=== PATIENT | male | born 1990 | race Caucasian/White ===

== ENCOUNTER → 2017-09-18 15:09 | Outpatient (CLI) | payer OTHER, SELFPAY ==
[2017-09-18 18:28] LABS: AST(SGOT) 25 U/L (15-37); Alanine Aminotransfer ALT/SGPT 27 U/L (16-61); Alkaline Phosphatase 66 U/L (45-117); Anion Gap 10 (5-15); BUN 8 mg/dL (7-18); BUN/Creat Ratio 10.2 RATIO (10-20); Bilirubin, Direct 0.14 mg/dL (0.00-0.30); Calcium,Total 9.4 mg/dL (8.5-10.1); Chloride 104 mmol/L (98-107); Cholesterol 179 mg/dL (200); Creatinine, Serum 0.79 mg/dL (0.70-1.30); EST Glomerular Filtration Rate 128 mL/min (>60); Est Glom Filt Rate - Afr Amer 155 mL/min (>60); Globulin 5.1 g/dL (2.2-4.2); Glucose 206 mg/dL (74-106); High Density Lipoprotein 22 mg/dL; Potassium 4.3 mmol/L (3.5-5.1); Protein, Total 9.1 g/dL (6.4-8.2); Sodium Level 135 mmol/L (136-145); Triglycerides 356 mg/dL; Very Low Density Lipoprotein 71 mg/dL (5-40)
[2017-09-18 19:57] LABS: Microalbumin:Creatinine Ratio 194.1 mg/g CRE (<30 mg/g CRE)
[2017-09-18 20:05] LABS: Neisserai gonorrhoeae by PCR Negative (Negative); Probe Check PASS; Sample Adequacy Control PASS; Specimen Processing Control PASS
[2017-09-19 09:54] LABS: HIV - WCH Non-Reactive (Nonreactive)
== END ==
PROVIDERS: Family Provider Family Medicine; PCP Family Medicine; Visit Provider Family Medicine
DX: E11.9 Type 2 diabetes mellitus without complications (principal); Z20.2 Contact with and (suspected) exposure to infections with a predominantly sexual mode of transmission; N52.9 Male erectile dysfunction, unspecified
CPT/HCPCS: 36415; 80048; 80061; 80076; 82043; 82570; 84403; 86703; 87591

== ENCOUNTER → 2017-12-29 10:40 | Outpatient (CLI) | payer OTHER, SELFPAY ==
[2017-12-29 12:31] LABS: Microalbumin,Random Urine 8.5 mg/L (NO RANGE EST.); Microalbumin:Creatinine Ratio 7.6 mg/g CRE (<30 mg/g CRE)
[2017-12-29 12:32] LABS: AST(SGOT) 14 U/L (15-37); Alanine Aminotransfer ALT/SGPT 16 U/L (16-61); Albumin, Serum 3.8 g/dL (3.2-5.0); Alkaline Phosphatase 43 U/L (45-117); Anion Gap 9 (5-15); BUN 11 mg/dL (7-18); BUN/Creat Ratio 15.6 RATIO (10-20); Bilirubin, Direct 0.18 mg/dL (0.00-0.30); Calcium,Total 9.3 mg/dL (8.5-10.1); Chloride 106 mmol/L (98-107); Cholesterol 90 mg/dL (200); EST Glomerular Filtration Rate 145 mL/min (>60); Est Glom Filt Rate - Afr Amer 175 mL/min (>60); Glucose 107 mg/dL (74-106); High Density Lipoprotein 21 mg/dL; Potassium 4.2 mmol/L (3.5-5.1); Protein, Total 7.8 g/dL (6.4-8.2); Sodium Level 138 mmol/L (136-145); Triglycerides 258 mg/dL; Very Low Density Lipoprotein 52 mg/dL (5-40)
== END ==
PROVIDERS: Family Provider Family Medicine; PCP Family Medicine; Visit Provider Family Medicine
DX: E11.9 Type 2 diabetes mellitus without complications (principal); E34.9 Endocrine disorder, unspecified; Z79.4 Long term (current) use of insulin
CPT/HCPCS: 36415; 80048; 80061; 80076; 82043; 82570; 84403

== ENCOUNTER 2018-02-26 05:56 | Day surgery (SDC) | payer OTHER, SELFPAY ==
[2018-02-26 06:18] VITALS: BP 128/92; PULSE 76; RESP 16; TEMP 37.6; O2SAT 99; BMI 28.7
[2018-02-26 06:30] LABS: Bedside Glucose 82 mg/dL (70-110)
--- NOTE | 2018-02-26 07:30 | SEP_PTH ---
PATIENT: JOSE ANGEL WATSON [place] [facility] [place][id number] AGE/SX: 27/M ROOM: RE02/26/[address]: Vish Zuleta MD : [id number] BED: DIS: 02/26/2018 SPEC #: [id number] RECD: 02/26/18 10:39 STATUS: BENJI REAnnie #: [id number] RAFI: 02/26/18 07:[address]: Vish Zuleta DEPT: SURGICAL PATHOLOGY RECD BY: Joshua De Santiago ENTERED: 02/26/18 11:33 SP TYPE: SEPTUM OTHR DR: Dr. Isra Hernandez MD Tissues: Nasal septum, NOS Procedures: Decalcification bone/plaque Surgery Specimen Level III HEADER OPERATION: Septoplasty, turbinate cautery PRE-OP DIAGNOSIS: Nasal congestion, deviated nasal septum, hypertrophy of nasal turbinates TISSUE SUBMITTED: Septum and cartilage MICROSCOPIC DIAGNOSIS Septum and cartilage: Fragments of cartilage and bone, clinically deviated nasal septum. SJ:delia 03/04/18 MICROSCOPIC DESCRIPTION Slides are reviewed. GROSS DESCRIPTION Received in fixative is one container labeled with the patient's name and designated nasal septum and cartilage. The specimen consists of multiple pieces of bone and cartilage that in aggregate measure 2.5 x 1.5 x 0.3 cm. The entire specimen is submitted in one cassette after decalcification. / SAROJ:delia 02/26/18 TC: 5 CPT: 57844, 15881
[2018-02-26] MEDS: Oxymetazoline 0.05% 1 SPRAY SPRAY.BTL 15 SPRAY (07:45)
[2018-02-26] MEDS: Neomycin/Bacitracin/Polymyxin Ointment 1 APPLIC (08:00)
[2018-02-26] MEDS: Mixture 30 ML Bottle TOPICAL (08:00)
[2018-02-26 08:39] LABS: Hemoglobin A1c 5.6 % (4.2-6.3)
--- NOTE | 2018-02-26 08:49 | PCM.DC ---
You will use the following diet at home:: No restrictions Discharge Activity: Return to Normal Activity - Head of bed elevation. Do not blow nose but may rinse with saline and sniff and clear multiple times per day. Also may use Afrin nasal spray to reduce any congestion or oozing, should that occur. Take antibiotic as prescribed. Allergies/Adverse Reactions: Allergies No Known Allergies Allergy (Verified 02/19/18 13:15) Medications to take at Discharge Atorvastatin Calcium [Lipitor] 10 mg PO QHS 02/19/18 Glimepiride [Amaryl] 2 mg PO DAILY 02/19/18 Lisinopril [Zestril] 5 mg PO DAILY 02/19/18 Metformin HCl [Glucophage] 1,000 mg PO BIDCM 02/19/18 Sitagliptin Phosphate [Januvia] 50 mg PO DAILY 02/19/18 Test Results: Test results from this visit will be discussed in further detail at your follow-up appointment, if applicable. Please Follow Up With: Vish Zuleta MD - call for appointment to remove splints 03-10-18
--- NOTE | 2018-02-26 08:53 | DCINST_ITS ---
You will use the following diet at home:: No restrictions Discharge Activity: Return to Normal Activity - Head of bed elevation. Do not b low nose but may rinse with saline and sniff and clear multiple times per day. Also may use Afrin nasal spray to reduce any congestion or oozing, should that occur. Take antibiotic as prescribed. Allergies/Adverse Reactions: Allergies No Known Allergies Allergy (Verified 02/19/18 13:15) Medications to take at Discharge Atorvastatin Calcium [Lipitor] 10 mg PO QHS 02/19/18 Glimepiride [Amaryl] 2 mg PO DAILY 02/19/18 Lisinopril [Zestril] 5 mg PO DAILY 02/19/18 Metformin HCl [Glucophage] 1,000 mg PO BIDCM 02/19/18 Sitagliptin Phosphate [Januvia] 50 mg PO DAILY 02/19/18 Test Results: Test results from this visit will be discussed in further detail at your follow- up appointment, if applicable. Please Follow Up With: Vish Zuleta MD - call for appointment to remove splints 03-10-18
[2018-02-26 09:00] VITALS: BP 128/92; BP 135/93; BP 140/94; PULSE 106; PULSE 90; RESP 15; RESP 16; TEMP 36.7; O2SAT 100; O2SAT 98
[2018-02-26 09:14] VITALS: BP 128/92
[2018-02-26 09:15] VITALS: BP 128/92; BP 134/96; PULSE 85; RESP 16; TEMP 36.6; O2SAT 98
[2018-02-26 09:16] LABS: Bedside Glucose 64 mg/dL (70-110)
[2018-02-26] MEDS: HYDROcodone Bitartrate/Apap 5/325 Tablet PO (09:40)
[2018-02-26 10:25] VITALS: BP 128/92; BP 135/91; PULSE 75; RESP 16; TEMP 36.9; O2SAT 100
--- NOTE | 2018-02-26 10:55 | PCM.OP.BLANK ---
Operative Report Date of Procedure: 02/26/18 Preoperative diagnosis: Nasal obstruction secondary to septal deformity and turbinate hypertrophy Postoperative diagnosis: Same Procedure: Nasal septoplasty, therapeutic outfracture and subsequent submucosal cautery of inferior turbinates Anesthesia: General per Jack Rosales Details of procedure: The patient was transported to the operating room and placed on the OR table in the supine position. After the administration of adequate general anesthesia using an LMA the patient was appropriately positioned, eyes were treated and taped closed. Nasal exam revealed severe septal deviation to the right side with virtually 100% obstruction of the right nasal chamber. A large concave surface was noted on the left side. Turbinates were hypertrophic easily recognized on the left side but not quite as apparent until the septum was later replaced to the midline position. Over 10 years ago this young fellow underwent adenoidectomy and removal of a large posterior nasal septal spur. At that time intervention on the septum was not undertaken as he was still growing and the septum at that time did not seem as badly displaced to the right side. Over a decade, and possibly with some nasal trauma, the septum developed in a fashion to tilt severely to the right side closing the right nasal chamber at the vestibule and nasal valve region. Cottonoid pledgets soaked in Lenny-Synephrine Xylocaine mixture were placed into the nasal chamber to bring about vasoconstriction. 1% Xylocaine with epinephrine 1-100,000 was used to infiltrate the septum and the submucosal plane in the left side of the septum as well as inferiorly along the right maxillary crest region. Later in the procedure the inferior turbinates were also injected with small quantity of this local anesthetic. After allowing adequate time for the vasoconstrictive effects to take place a right hemitransfixion incision was created with #15 scalpel and the soft tissues were elevated in the subperichondrial plane along the left side of the septum. An inferior tunnel was created on the right side as well along the maxillary crest and the most inferior aspect of the quadrangular cartilage. At the chondro-osseous junction of the septum [place] elevator was used to make a cut so that a posterior tunnel could be elevated on the right side as well. The remaining portion of perpendicular plate of ethmoid was removed after double-action scissors were used to make superior and inferior cuts. Quadrangular cartilage was freed from the maxillary crest anteriorly and the inferior aspect was slightly shaved to allow it to have better positioning and articulation with the maxillary crest. This was positioned without buckling afterward. The improvement in the nasal airway was substantial. During the dissection a small tear occurred in the right septal flap. This was thought to be advantageous as it is important to have some opening for egress of any retained serosanguineous fluid between the mucoperichondrial flaps. No tear or defect occurred on the left side of the mucoperichondrial flap. Septum was repositioned in the midline and as described above, and sat vertically without any buckling. The hemitransfixion incision was closed with interrupted suture of 4-0 chromic. The inferior turbinates were then laterally outfractured and treated with the [place] bipolar probe. The probe was placed into the anterior aspect of the turbinate, current was applied and when appropriate blanching was evident the probe was advanced the length of the turbinate accomplishing submucosal or intramural cautery. The posterior tips received additional cautery with benefit of the 0 degree endoscope for guidance. The airway appeared to be greatly improved and the septum was supported with placement of Pfeiffer airway splints first coated in antibiotic ointment introduced into the nasal chamber and secured anteriorly with a single suture of 3-0 Ethilon. A nasal drip pad was applied and the procedure was terminated. The patient tolerated the procedure well, did not sustain any intraoperative anesthetic or surgical complication, was taken to the recovery where he was noted to be in satisfactory condition. Vish Zuleta MD
--- NOTE | 2018-02-26 11:09 | OP.PCM_ITS ---
Operative Report Date of Procedure: 02/26/18 Preoperative diagnosis: Nasal obstruction secondary to septal deformity and turbinate hypertrophy Postoperative diagnosis: Same Procedure: Nasal septoplasty, therapeutic outfracture and subsequent submucosal cautery of inferior turbinates Anesthesia: General per Jack Rosales Details of procedure: The patient was transported to the operating room and placed on the OR table in the supine position. After the administration of adequate general anesthesia using an LMA the patient was appropriately positioned, eyes were treated and taped closed. Nasal exam revealed severe septal deviation to the right side with virtually 100% obstruction of the right nasal chamber. A large concave surface was noted on the left side. Turbinates were hypertrophic easily recognized on the left side but not quite as apparent until the septum was later replaced to the midline position. Over 10 years ago this young fellow underwent adenoidectomy and removal of a large posterior nasal septal spur. At that time intervention on the septum was not undertaken as he was still growing and the septum at that time did not seem as badly displaced to the right side. Over a decade, and possibly with some nasal trauma, the septum developed in a fashion to tilt severely to the right side closing the right nasal chamber at the vestibule and nasal valve region. Cottonoid pledgets soaked in Lenny-Synephrine Xylocaine mixture were placed into the nasal chamber to bring about vasoconstriction. 1% Xylocaine with epinephrine 1-100,000 was used to infiltrate the septum and the submucosal plane in the left side of the septum as well as inferiorly along the right maxillary crest region. Later in the procedure the inferior turbinates were also injected with small quantity of this local anesthetic. After allowing adequate time for the vasoconstrictive effects to take place a right hemitransfixion incision was created with #15 scalpel and the soft tissues were elevated in the subperichondrial plane along the left side of the septum. An inferior tunnel was created on the right side as well along the maxillary crest and the most inferior aspect of the quadrangular cartilage. At the chondro-osseous junction of the septum [place] elevator was used to make a cut so that a posterior tunnel could be elevated on the right side as well. The remaining portion of perpendicular plate of ethmoid was removed after double- action scissors were used to make superior and inferior cuts. Quadrangular ca rtilage was freed from the maxillary crest anteriorly and the inferior aspect was slightly shaved to allow it to have better positioning and articulation with the maxillary crest. This was positioned without buckling afterward. The improvement in the nasal airway was substantial. During the dissection a small tear occurred in the right septal flap. This was thought to be advantageous as it is important to have some opening for egress of any retained serosanguineous fluid between the mucoperichondrial flaps. No tear or defect occurred on the left side of the mucoperichondrial flap. Septum was repositioned in the midline and as described above, and sat vertically without any buckling. The hemitransfixion incision was closed with interrupted suture of 4-0 chromic. The inferior turbinates were then laterally outfractured and treated with the [place] bipolar probe. The probe was placed into the anterior aspect of the turbinate, current was applied and when appropriate blanching was evident the probe was advanced the length of the turbinate accomplishing submucosal or intramural cautery. The posterior tips received additional cautery with benefit of the 0 degree endoscope for guidance. The airway appeared to be greatly improved and the septum was supported with placement of Pfeiffer airway splints first coated in antibiotic ointment introduced into the nasal chamber and secured anteriorly with a single suture of 3-0 Ethilon. A nasal drip pad was applied and the procedure was terminated. The patient tolerated the procedure well, did not sustain any intraoperative anesthetic or surgical complication, was taken to the recovery where he was noted to be in satisfactory condition. Vish Zuleta MD
== END 2018-02-26 10:25 | disposition home or self-care (01) ==
LOC: SDC 05:57 → AC 05:59
PROVIDERS: Family Provider Family Medicine; PCP Family Medicine; Referring Provider Otolaryngology Otolaryngology/Facial Plastic Surgery; Visit Provider Otolaryngology Otolaryngology/Facial Plastic Surgery
PROC: (CPT 30520; principal; 2018-02-26 07:15)
DX: J34.2 Deviated nasal septum (principal); J34.3 Hypertrophy of nasal turbinates; E78.00 Pure hypercholesterolemia, unspecified; F41.9 Anxiety disorder, unspecified; F32.9 Major depressive disorder, single episode, unspecified; Z79.84 Long term (current) use of oral hypoglycemic drugs; Z79.899 Other long term (current) drug therapy; E11.65 Type 2 diabetes mellitus with hyperglycemia
CPT/HCPCS: 00160; 30520; 30802; 82962; 83036; 88304; 88311; J7120; J2405

== ENCOUNTER 2018-03-19 23:54 | Emergency (ER) | payer OTHER, SELFPAY ==
[2018-03-19 23:56] VITALS: BP 128/91; PULSE 159; RESP 20; TEMP 36.4; O2SAT 99; BMI 27.5
[2018-03-20] MEDS: Adenosine 6 MG/2 ML Syringe IV (00:04)
--- NOTE | 2018-03-20 00:06 | ED.RN ---
CALLED FOR EKG PER RN REQUEST, PULLED OLD EKGS FOR
[2018-03-20 00:10] LABS: Bedside Glucose 108 mg/dL (70-110)
--- NOTE | 2018-03-20 00:35 | EKG12_ITS ---
Test Reason : REPEAT Blood Pressure : / mmHG Vent. Rate : 081 BPM Atrial Rate : 081 BPM P-R Int : 170 ms QRS Dur : 108 ms QT Int : 404 ms P-R-T Axes : 054 017 041 degrees QTc Int : 469 ms Normal sinus rhythm Low voltage QRS Incomplete right bundle branch block Borderline ECG Confirmed by KARINE CANADA, ELENA ([id number]), video editor HELEN HENRIQUEZ ([id number]) on 03/25/2018 11:24:49 AM Referred By: DRAKE Confirmed By:ELENA MILTON MD
[2018-03-20 00:36] LABS: Absolute Lymphocyte Count 6.57 X10^3/ul (0.83-4.51); Absolute Neutrophil Count 3.8 X10^3/uL (2.0-7.7); Basophil# 0.08 X10^3/uL; Basophil% 0.7 % (0-1); Eosinophil# 0.58 X10^3/uL; Eosinophils% 4.9 % (0-5); Hematocrit 42.7 % (40-54); Hemoglobin 15.5 g/dl (13.0-16.5); Lymphocyte # 6.57 X10^3/ul (4.0); Lymphocyte % 55.3 % (19-41); Mean Corp Hgb Conc 36.3 g/gl (32-36); Mean Corpuscular Volume 82.6 fL (80-94); Mean Platelet Vol. 10.5 fl (6.2-12.0); Monocyte# 0.85 X10^3/uL; Monocyte% 7.1 % (0-10); Neutrophil # 3.79 X10^3/uL (2.7-7.7); Neutrophil % 31.8 % (47-70); Platelet Count 297 K/mm3 (150-450); RBC Distribution Width CV 12.3 % (11.6-14.6); RBC Distribution Width SD 36.8 fl (35.1-43.9); Red Blood Count 5.17 M/mm3 (4.6-6.2); White Blood Count 11.9 K/mm3 (4.4-11.0)
[2018-03-20 00:37] LABS: Differential Indicated SCAN CRITERIA MET; POSITIVE COUNT NO; POSITIVE DIFFERENTIAL YES; POSITIVE MORPHOLOGY NO
[2018-03-20 00:40] LABS: ALB/GLOB Ratio 0.9 RATIO (0.9-2.4); AST(SGOT) 24 U/L (15-37); Alanine Aminotransfer ALT/SGPT 22 U/L (16-61); Albumin, Serum 4.4 g/dL (3.2-5.0); Alkaline Phosphatase 50 U/L (45-117); Anion Gap 11 (5-15); BUN 18 mg/dL (7-18); BUN/Creat Ratio 14.8 RATIO (10-20); Calcium,Total 9.4 mg/dL (8.5-10.1); Chloride 103 mmol/L (98-107); Creatinine, Serum 1.22 mg/dL (0.70-1.30); EST Glomerular Filtration Rate 77 mL/min (>60); Est Glom Filt Rate - Afr Amer 93 mL/min (>60); Globulin 4.7 g/dL (2.2-4.2); Glucose 147 mg/dL (74-106); Potassium 3.5 mmol/L (3.5-5.1); Protein, Total 9.1 g/dL (6.4-8.2); Sodium Level 137 mmol/L (136-145)
--- NOTE | 2018-03-20 00:40 | ED.DCSUM_ITS ---
- ER Visit Summary Date of Service: 03/20/18 Chief Complaint: Palpitations History of Present Illness: The patient is a 27 M who presents with some chest discomfort and palpitations that started quite suddenly about an hour and 1/2-2 hours prior to arrival. He feels generalized weakness with this. He has no difficulty breathing, he has no abdominal pain no nausea or vomiting. He has some lightheadedness but no other symptoms. Physical Examination: Patient appears in some distress, he is not diaphoretic Moist mucous membranes, no obvious facial deformity No C-spine tenderness supple neck. Regular tachycardia without any obvious murmurs Clear lungs bilaterally speaking in full sentences without any obvious respiratory distress Abdomen soft and nontender no guarding or rebound Moves all extremities without any difficulty or pain. Skin does not show any obvious rashes or lesions, no trauma. Alert oriented ?3 with no gross focal deficiT Emergency Department Course and Treatment: The monitor and the initial EKG showed supraventricular tachycardia. Vagal maneuvers failed. 6 mg of adenosine IV were pushed and patient had spontaneous conversion to normal sinus rhythm. Because of history of hypertension diabetes, for his safety, I checked blood work, he does not have an anion gap, he has a normal blood sugar and otherwise normal workup. Disposition: Discharge stable condition Impression: Supraventricular tachycardia This note was generated with [employer] dictation software. It may contain incorrect words, spelling, and punctuation that were not noted in review of the chart p rior to signing ED Disposition - Plan for ED Patient: Disposition: Home or Assisted Living Chief Complaint: Chest Pain Instructions: ED Tachycardia Pat PSVT Referrals: Pacheco Guillermo MD [STAFF PHYSICIAN] - 3-5 Days
[2018-03-20 00:58] VITALS: BP 128/95; PULSE 79; RESP 17; O2SAT 98
[2018-03-20 01:31] VITALS: BP 122/88; PULSE 83; RESP 20; O2SAT 90; O2SAT 99
== END 2018-03-20 01:32 | disposition home or self-care (01) ==
PROVIDERS: Emergency Provider Emergency Medicine; Family Provider Family Medicine; PCP Family Medicine
DX: I47.1 Supraventricular tachycardia (principal); I10 Essential (primary) hypertension; E11.9 Type 2 diabetes mellitus without complications; Z79.84 Long term (current) use of oral hypoglycemic drugs; Z79.899 Other long term (current) drug therapy
CPT/HCPCS: 80053; 82962; 85025; 93005; 96374; 99283; J7030; A4216; J0153

== ENCOUNTER → 2018-04-01 11:43 | Outpatient (CLI) | payer OTHER, SELFPAY ==
[2018-03-19 23:56] VITALS: BMI 27.5
--- OUTSIDE RECORDS SUMMARY | 2018-05-27 20:43 | XMS RPT_ITS ---
:1990 Author Organization OHIP Support Name Relationship Address Phone WILDGINGER Unavailable [address] + [place] [address] KATJA WATSONI Unavailable [address] + [place] [address] CATRINA WATSON Unavailable [address] + [place] [address] WILDGINGER Unavailable [address] + [place] [address] LARA WATSON Unavailable [address] + [place] [address] [facility] CATRINA Unavailable [address] + [place] [address] WILDGINGER Unavailable [address] + [place] [address] LARA WATSON Unavailable [address] + [place] [address] WILDGINGER Unavailable [address] + [place] [address] LARA WATSON Unavailable [address] + [place] [address] WILDGINGER Unavailable [address] + [place] [address] LARA WATSON Unavailable [address] + [place] [address] WILDGINGER Unavailable [address] + [place] [address] LARA WATSON Unavailable [address] + [place] [address] WILDGINGER Unavailable [address] + [facility] [place] [address] KATJA WATSONI Unavailable [address] + [place] [address] UE Unavailable Unavailable Unavailable KATJA WATSONI Unavailable [address] + [place] [address] UE Unavailable Unavailable Unavailable KATJA WATSONI Unavailable [address] + [place] [address] Care Team Providers Name Role Phone Isra Hernandez Attending Unavailable Mary, Isra Primary Care Unavailable Mary, Isra Attending Unavailable Mary, Isra Primary Care Unavailable Vish Zuleta Attending Unavailable Vish Zuleta Referring Unavailable Mary, Isra Primary Care Unavailable Hernandez, Isra Primary Care Unavailable Isra Pierson Attending Unavailable Georgia Alvarez Attending Unavailable Hernandez, Isra Attending Unavailable Mary, Isra Primary Care Unavailable Eagle, Salem Attending Unavailable Mary, Isra Referring Unavailable Eagle, Pacheco Attending Unavailable Eagle, Pacheco Referring Unavailable Mary, Isra Primary Care Unavailable Eagle, [place] Attending Unavailable Eagle, Pacheco Referring Unavailable Hernandez, sIra Primary Care Unavailable Eagle, [place] Consulting Unavailable PROBLEMS PROBLEMS DATE TYPE CONDITION / CODE ATTENDING STATUS SOURCE Unknown I47.1 - Supraventricular Eagle, Pacheco Active [place] [facility] tachycardia / Community I47.1(ICD-10) Hospital Repository Unknown I10 - Essential (primary) Eagle, Pacheco Active [place] [facility] hypertension / Community I10(ICD-10) Hospital Repository Unknown E78.00 - Pure Eagle, Salem Active [place] [facility] hypercholesterolemia, Community unspecified / Hospital E78.00(ICD-10) Repository Unknown E78.0 - Pure Eagle, Pacheco Active [place] [facility] hypercholesterolemia / Community E78.0(ICD-10) Hospital Repository Unknown E11.9 - Type 2 diabetes Isra Hernandez Active [place] [facility] mellitus without Community complications / Hospital E11.9(ICD-10) Repository Unknown E34.9 - Endocrine Isra Hernandez Active [place] [facility] disorder, unspecified / Community E34.9(ICD-10) Hospital Repository Unknown Z20.2 - Contact with and Isra Hernandez Active [place] 8 (suspected) exposure to Community infections with a Hospital predominantly sexual mode Repository of transmission / Z20.2(ICD-10) Unknown N52.9 - Male erectile Isra Hernandez Active [place] [facility] dysfunction, unspecified Community / N52.9(ICD-10) Hospital Repository PROCEDURES PROCEDURES No Procedure Records FoundRESULTS RESULTS ECHOCARDIOGRAM COMPLETE Observed: 04/06/2018 Status: F Source: [place] 7:44 AM [facility] RE[facility] Cardiovascular Services [address] [place] [address] Echo Complete 04/02/18 1456 MR#: [id number] Acct: [id number] Name: LACI WATSON Rep #: [id number] : 1990 From: Pacheco Guillermo MD Attending Dr: Pacheco Guillermo MD Status: REG CLI Ordering Dr: Pacheco Guillermo MD Date: 04/02/18 Location: CVS Sex: M C Admitted: Reason For Study: Arrhythmia Procedure This was a 2D Doppler, Color Flow transthoracic echocardiogram. Exam performed in department. Left Ventricle Normal LV size. The estimated ejection fraction is 53 %. No evidence for diastolic dysfunction. Left ventricular systolic function is lower limits of normal. No regional wall motion abnormalities noted. Right Ventricle Normal RV size. Normal systolic function. Atria Normal right atrium. Mitral Valve Normal mitral valve. Tricuspid Valve Normal tricuspid valve. Mild (1+) tricuspid valve insufficiency. Aortic Valve Normal aortic valve. Pulmonic Valve Normal pulmonic valve. Great Vessels Normal aortic root. The pulmonary artery is normal size. Normal inferior vena cava. Pericardium/Pleural No pericardial effusion. MMode/2D Measurements AND Calculations LVIDd: 4.2 cm IVSd: 1.0 cm Ao root diam: 3.6 cm LVIDs: 2.9 cm LVPWd: 0.92 cm LA dimension: 2.9 cm FS: 31.3 % LAV(MOD-sp4): 28.6 ml LA A4 area: 14.4 cm2 RA A4 area: 12.6 cm2 Time Measurements MV dec time: 0.20 sec Doppler Measurements AND Calculations MV E max marvin: 61.5 cm/sec Lat Peak E' Marvin: 11.1 cm/sec Med Peak E' Marvin: 7.7 cm/sec MV A max marvin: 53.9 cm/sec E/E' lat: 5.5 E/E' med: 7.9 MV E/A: 1.1 MV V2 max: 62.9 cm/sec MV P1/2t max marvin: 62.9 cm/sec Ao V2 max: 86.7 cm/sec MV max P.6 mmHg MV P1/2t: 88.4 msec Ao max P.0 mmHg MV V2 mean: 42.1 cm/sec MV dec slope: 208.6 cm/sec2 Ao V2 mean: 56.3 cm/sec MV mean P.82 mmHg MVA(P1/2t): 2.5 cm2 Ao mean P.5 mmHg MV V2 VTI: 20.7 cm Ao V2 VTI: 15.6 cm LV V1 max: 70.1 cm/sec PA V2 max: 77.6 cm/sec TR max marvin: 186.4 cm/sec LV V1 max P.0 mmHg TR max P.9 mmHg LV V1 mean P.1 mmHg LV V1 mean: 49.1 cm/sec LV V1 VTI: 14.2 cm Interpretation Summary Normal LV size. The estimated ejection fraction is 53 %. No evidence for diastolic dysfunction. No regional wall motion abnormalities noted. Left ventricular systolic function is lower limits of normal. Ordering Physician: Pacheco Guillermo Referring Physician: Isra Hernandez Performed By: Beau Arellano RCS 04/06/18 0743 Date Pacheco Guillermo MD CC: Pacheco Guillermo MD; Isra Hernandez MD Date Dictated: 04/02/18 1456 Date Transcribed: 04/06/1843 Multicultural Services Librarian: Signed 12 LEAD ELECTROCARDIOGRAM Observed: 04/03/2018 Status: F Source: [place] 9:12 AM [facility] Cardiovascular Services [address] [place] [address] 12 Lead EKG 03/20/18 0116 MR#: [id number] Acct: [id number] Name: LACI WATSON Rep #: [id number] : 1990 27 From: Pacheco Guillermo MD Attending Dr: Status: DEP ER Ordering Dr: Isra Pierson MD Date: 03/20/18 Location: ED Sex: M C Admitted: Test Reason : REPEAT Blood Pressure : / mmHG Vent. Rate : 081 BPM Atrial Rate : 081 BPM P-R Int : 170 ms QRS Dur : 108 ms QT Int : 404 ms P-R-T Axes : 054 017 041 degrees QTc Int : 469 ms Normal sinus rhythm Low voltage QRS Incomplete right bundle branch block Borderline ECG Confirmed by PACHECO GUILLERMO MD ([id number]), research editor HELEN HENRIQUEZ ([id number]) on 03/25/2018 11:24:49 AM Referred By: DRAKE Confirmed By:PACHECO GUILLERMO MD 03/25/18 1124 Date Pacheco Guillermo MD CC: Isra Pierson MD; Isra Hernandez MD Signed CARDIOLOGY VISIT Observed: 04/01/2018 Status: F Source: [place] REPORT 2:06 PM [facility] [address] [place] [address] OFFICE VISIT Date of Service: 04/01/18 MR#: [id number] Acct: [id number] Name: LACI WATSON Rep #: [id number] : 1990 Provider: Pacheco Guillermo MD Age/Sex: 27/M [facility] [facility] Status: Signed HPI HPI Chief Complaint: Initial visit Details: LACI WATSON, is a 27 M who presents to the office today for an initial visit. He is a gentleman with a history of hypertension, diabetes mellitus, hyperlipidemia who presented to the emergency room on 03/20/2018 after he experienced palpitations. He said that this started suddenly and was going on for about 1-1/2-2 hours. He denied any chest pain or shortness breath or paroxysmal nocturnal dyspnea or pedal edema. He says that he apparently had a syncopal episode with the above. In the emergency room he was noted to be in a narrow complex tachycardia with a rate of approximately 146 bpm and after administration of 6 mg of adenosine he converted back to sinus rhythm. He had had a previous echocardiogram in 2010 for reasons that are not entirely clear but may have been secondary to palpitations. It demonstrated preserved ejection fraction with structurally normal valves. His physical exam today demonstrates clear lung rosenthal regular rate and rhythm no pedal edema his electrolytes were noted to be normal at that time including a normal TSH. Intake Vital Signs04/01/18 Height 6 ft 04/01/18 Weight: 209 lb Intake Visit Reasons: ER 11-16 for palps (NEW to [facility]) Allergies No Known Allergies Allergy (Verified 04/01/18 13:03) Medications Atorvastatin Calcium [Lipitor] 10 mg PO QHS 02/19/18 [History Confirmed 03/31/18] Glimepiride [Amaryl] 2 mg PO DAILY 02/19/18 [History Confirmed 03/31/18] Lisinopril [Zestril] 5 mg PO DAILY 02/19/18 [History Confirmed 03/31/18] Metformin HCl [Glucophage] 1,000 mg PO BIDCM 02/19/18 [History Confirmed 03/31/18] Sitagliptin Phosphate [Januvia] 50 mg PO DAILY 02/19/18 [History Confirmed 03/31/18] Citalopram [Celexa] 20 mg PO DAILY 03/20/18 [History Confirmed 03/31/18] testosterone cypionate 200 mg/mL intramuscular kit 100 mg IM Q2W 03/31/18 [History Confirmed 03/31/18] [facility] Medical History Supraventricular tachycardia (Acute 03/20/18) Essential (primary) hypertension (Chronic) Hyperlipidemia (Chronic) Anxiety and depression (Chronic) Erectile dysfunction (Chronic) Obesity (Chronic) Type 2 diabetes mellitus (Chronic) Surgical History H/O adenoidectomy (Resolved) History of nasal septoplasty (Resolved 02/2018) History of skin surgery (Resolved) Social History Smoking Status: Never smoker alcohol intake: never caffeine: Yes (2-3 daily) ROS Const Const: Negative for fatigue, weakness, difficulty sleeping, frequent falls, excessive sweating or headache(s) Eyes Eyes: Negative for loss of peripheral vision, transient loss of vision, blurry vision, tunnel vision or double vision ENT ENT: Negative for headache(s), dizziness, Nosebleed/epistaxis or balance problems Cardio Chest Pain: No Palpitations: Yes (1 episode of SVT w/ syncope) feels like its: fast, pounding Edema: None Muscle aches with walking: None Resp Respiratory: Negative for SOB with activity, SOB at rest, SOB orthopnea\SOB lying down, paroxysmal nocturnal dyspnea or Cough GI GI: Negative nausea, heartburn, black,tarry stools or vomiting : Negative for hematuria Musc Musc: Negative for balance problems, muscle aches/ myalgia, muscle weakness or joint pain Skin Skin: Negative non-healing lesions, unusual bruising or rash Neuro Neuro: Negative for weakness, frequent falls, headache(s), blurry vision, double vision, dizziness, lightheadedness, orthostatic symptoms, near syncope, syncope or lack of coordination Thuan Hematologic/Lymphatic: Negative for easy bruising or easy bleeding Endo Endo: Negative for fatigue, excessive sweating or increased thirst/drinking Psych Psych: Negative for anxiety or depression Allergy Allergy/Immunology: Negative for hives, Negative for rash Cardiology Exam Const Appearance: cooperative, healthy appearing, well developed, well groomed and no acute distress Nutritional Appearance: well nourished and average body habitus Orientation: alert, awake and oriented x3 Head Head: normal to inspection, normocephalic and atraumatic Ears: hearing grossly normal bilaterally and external ears normal Nose: external nose normal, nasal mucous membranes and turbinates normal, nares normal, septum normal, no nasal discharge Face and Sinus: face symmetric Mouth: oral mucosae normal, tongue normal, oropharynx normal and moist mucous membranes Teeth and gingiva: dentition normal Throat: posterior oropharynx normal, tonsils normal and uvula midline Eyes General: appearance normal, both eyes and all related structures Eyelids: eyelids normal Conjunctivae: conjunctivae normal Pupils: PERRL, normal by confrontation and accommodation normal EOM: EOM intact bilaterally Neck Neck: normal visual inspection, trachea midline and no JVD JVD: +5 Carotids: normal carotid upstroke and bounding pulses Chest Chest inspection: normal inspection of the chest, symmetric chest movement and normal respiratory effort Auscultation: Bilateral: Clear to Auscultation Cardio Palpation: normal PMI Rate: regular rate Rhythm: regular rhythm Heart sounds: S1 normal, S2 normal and normal, physiologic split S2; negative rub, gallop or murmur GI GI: normal to inspection, soft, no hepatosplenomegaly and bowel sounds present Neuro General: alert, awake, oriented x3, no focal sensory deficit, gait normal and moves all extremities Skin Skin: no rashes or lesions noted Extremities Pulses: Normal: Right Femoral Pulse, Left Femoral Pulse, Right Dorsalis Pedis Pulse, Left Dorsalis Pedis Pulse, Right Posterior Tibial Pulse, Left Posterior Tibial Pulse, Right Radial Pulse, Left Radial Pulse Lower Extremity Edema: None: Bilateral Musculoskel Musculoskeletal: No joint tenderness Psych Psychological: normal affect Assessment AND Plan 1. Supraventricular tachycardia I47.1 Plan He does have a history of supraventricular tachycardia. It is not clear whether this is the same rhythm that he had when he was age 19. Due to the infrequency the of the above I would recommend that we obtain an echocardiogram at this stage and consider an ablation if he has a recurrence. I am hesitant to place him on a beta-margaux I am asking him to reduce the amount of adrenergic beverages that he consumes. Orders Orders: 2. Essential (primary) hypertension I10 Plan His blood pressure appears to be under good control at the current time no major changes will be made. 3. Pure hypercholesterolemia E78.00; E78.0 Plan He does have a history of hyperlipidemia. He has significantly altered his diet his most recent lipid profile demonstrates a total cholesterol of 90 LDL of 17 and HDL of 21. He will continue on his current dose of low to medium intensity atorvastatin. Thank you for allowing me to participate in the care of your patient. 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) Coding Level of Care Code Off vis,new,level 4 Diagnoses Supraventricular tachycardia I47.1 Essential (primary) hypertension I10 Pure hypercholesterolemia E78.00; E78.0 Hyperlipidemia type: pure hypercholesterolemia Coding Level of Care Code Off vis,new,level 4 Diagnoses Supraventricular tachycardia I47.1 Essential (primary) hypertension I10 Pure hypercholesterolemia E78.00; E78.0 Hyperlipidemia type: pure hypercholesterolemia 04/01/18 1406 <Electronically signed by Pacheco Guillermo MD> Date Pacheco Guillermo MD Cosigner Signature: Date (if applicable) CC: Isra Hernandez MD THYROID STIM HORMONE Collected: 04/01/2018 Status: F Source: [place] (TSH) 11:46 AM [facility] TYPE CODE TESTS RESULT OUT OF RANGE REFERENCE UNITS LAB L501.9520 0.358-3.74 uIU/mL Normal TSH 3.10 Performed By: #### L501.9520 #### [facility] [address] [place], [address] TESTOSTERONE, SERUM TOTAL Collected: 04/01/2018 Status: F Source: [place] 11:46 AM [facility] TYPE CODE TESTS RESULT OUT OF REFERENCE UNITS RANGE LAB L509.3000 ng/dL Testosterone Normal 362.93 Result Comment: NORMAL REFERENCE RANGES MALE AGE <50 123.06 - 813.86 ng/dL MALE AGE >50 89.98 - 780.10 ng/dL FEMALE PREMENOPAUSE AGE 21 - 60 9.01 - 47.94 ng/dL FEMALE POSTMENOPAUSE AGE 45 - 89 <7.00 - 45.62 ng/dL REFERENCE RANGE AND METHODOLOGY CHANGED 04/23/2017 Performed By: #### L509.3000 #### [facility] [address] [facility] [place], [address] EMERGENCY DEPARTMENT Observed: 03/20/2018 Status: F Source: [place] SUMMARY 1:16 AM [facility] Medical Records Department [address] [place] [address] Emergency Department Summary 03/20/18 0033 MR#: [id number] Acct: [id number] Name: LACI WATSON Rep #: [id number] : 1990 27 From: Isra Pierson MD PCP: Isra Hernandez MD Status: REG ER - ER Visit Summary Date of Service: 03/20/18 Chief Complaint: Palpitations History of Present Illness: The patient is a 27 M who presents with some chest discomfort and palpitations that started quite suddenly about an hour and 1/2-2 hours prior to arrival. He feels generalized weakness with this. He has no difficulty breathing, he has no abdominal pain no nausea or vomiting. He has some lightheadedness but no other symptoms. Physical Examination: Patient appears in some distress, he is not diaphoretic Moist mucous membranes, no obvious facial deformity No C-spine tenderness supple neck. Regular tachycardia without any obvious murmurs Clear lungs bilaterally speaking in full sentences without any obvious respiratory distress Abdomen soft and nontender no guarding or rebound Moves all extremities without any difficulty or pain. Skin does not show any obvious rashes or lesions, no trauma. Alert oriented 3 with no gross focal deficiT Emergency Department Course and Treatment: The monitor and the initial EKG showed supraventricular tachycardia. Vagal maneuvers failed. 6 mg of adenosine IV were pushed and patient had spontaneous conversion to normal sinus rhythm. Because of history of hypertension diabetes, for his safety, I checked blood work, he does not have an anion gap, he has a normal blood sugar and otherwise normal workup. Disposition: Discharge stable condition Impression: Supraventricular tachycardia This note was generated with FIGS dictation software. It may contain incorrect words, spelling, and punctuation that were not noted in review of the chart prior to signing ED Disposition - Plan for ED Patient: Disposition: Home or Assisted Living Chief Complaint: Chest Pain Instructions: ED Tachycardia Pat PSVT Referrals: Pacheco Guillermo MD [STAFF PHYSICIAN] - 3-5 Days What to do if you have Problems For any increased pain, shortness of breath, bleeding, nausea or vomiting, chest pain, or any unexpected problems, contact your Primary Care Provider. Call [facility] ([phone]) or report to the closest Emergency Room. Call 911 if necessary. 03/20/18 0116 <Electronically signed by Isra Pierson MD> Date Isra Pierson MD Cosigner Signature (If Indicated): Date CC: Isra Hernandez MD BEDSIDE GLUCOSE Collected: 03/20/2018 Status: F Source: [place] 12:05 AM [facility] TYPE CODE TESTS RESULT OUT OF RANGE REFERENCE UNITS LAB L501.080 70-110 mg/dL Normal BEDSIDE GLU 108 Result Comment: MANAGEMENT OF PATIENT CARE PER NURSING PROTOCOL Performed By: #### L501.080 #### [facility] Point of Care [address] [place] [address] CBC W/DIFF, AUTOMATED Collected: 03/19/2018 Status: F Source: [place] 11:58 PM [facility] TYPE CODE TESTS RESULT OUT OF RANGE REFERENCE UNITS LAB L100.1000 4.4-11.0 K/mm3 High WBC 11.9 LAB L100.1200 4.6-6.2 M/mm3 Normal RBC 5.17 LAB L100.1300 13.0-16.5 g/dl Normal HGB 15.5 LAB L100.1400 40-54 % Normal HCT 42.7 LAB L100.1500 80-94 fL Normal MCV 82.6 LAB L100.1600 27.0-32.0 pg Normal MCH 30.0 LAB L100.1700 32-36 g/gl High MCHC 36.3 LAB L100.1810 11.6-14.6 % Normal RDW CV 12.3 LAB L100.1820 35.1-43.9 fl Normal RDW SD 36.8 LAB L100.1900 150-450 K/mm3 Normal PLT 297 LAB L100.2000 6.2-12.0 fl Normal MPV 10.5 LAB L100.2100 47-70 % Low NEUT% 31.8 LAB L100.2200 19-41 % High LY% 55.3 LAB L100.2300 0-10 % Normal MONO% 7.1 LAB L100.2400 0-5 % Normal EO% 4.9 LAB L100.2500 0-1 % Normal BASO% 0.7 LAB L100.2550 0.0-0.9 % Normal IM GRAN % 0.200 Result Comment: IG% - Immature Granulocytes (promyelocytes, myelocytes and metamyelocytes) > 1% indicates that a LEFT SHIFT is Present. LAB L100.2620 2.0-7.7 X10 3/uL Normal Absolute Neut 3.8 LAB L100.2720 0.83-4.51 X10 3/ul High Absolute Lymph 6.57 Performed By: #### L100.0100 #### [facility] [place], [address] COMPREHENSIVE METABOLIC Collected: 03/19/2018 Status: F Source: [place] [facility] 11:58 PM [facility] TYPE CODE TESTS RESULT OUT OF RANGE REFERENCE UNITS LAB L501.0100 74-106 mg/dL High GLU 147 Result Comment: Fasting Glucose result greater than or equal to 126 mg/dL suggests DIABETES MELLITUS per A.D.A. criteria. Please note revised GLUCOSE reference range effective 2017. LAB L501.1000 7-18 mg/dL Normal BUN 18 LAB L501.1100 0.70-1.30 mg/dL Normal CREAT,SERUM 1.22 Result Comment: The validity of the calculated GFR AND GFRAA in patients over 70 years has not been determined. Clinical correlation is essential. LAB L501.1110 >60 mL/min Normal EST GFR 77 Result Comment: Non- GFR Calc LAB L501.1115 >60 mL/min Normal EST GFR - AA 93 Result Comment: GFR Calc LAB L501.1255 ml/min Normal Estimated CRCL 104.60 LAB L501.1300 10-20 RATIO BUN/CRE Normal 14.8 LAB L501.1500 6.4-8. g/dL High 2 T PROT 9.1 LAB L501.1800 3.2-5. g/dL 0 ALB Normal 4.4 LAB L501.1950 2.2-4. g/dL High 2 GLOB 4.7 LAB L501.2000 0.9-2. RATIO 4 A/G Normal 0.9 LAB L501.2200 8.5-10 mg/dL .1 CA Normal 9.4 LAB L501.4100 15-37 U/L AST Normal 24 LAB L501.4305 45-117 U/L ALK P Normal 50 LAB L501.4405 16-61 U/L ALT Normal 22 LAB L501.4600 0.20-1 mg/dL .00 T BILI Normal 0.70 LAB L501.5300 136-14 mmol/L 5 NA Normal 137 LAB L501.5600 3.5-5. mmol/L 1 K Normal 3.5 LAB L501.5900 98-107 mmol/L CL Normal 103 LAB L501.6100 21.0-3 mmol/L 2.0 CO2 Normal 23.0 LAB L501.6200 5-15 GAP Normal 11 Performed By: #### L500.4050 #### [facility] [address] [place], [place], [address] OPERATIVE REPORT Observed: 02/26/2018 Status: F Source: [place] 11:09 AM [facility] Medical Records Department [address] [place] [address] Operative Report 02/26/18 1055 MR#: [id number] Acct: [id number] Name: LACI WATSON Rep #: [id number] : 1990 27 From: Vish Zuleta MD PCP: Isra Hernandez MD Status: [facility] Location: [facility] Operative Report Date of Procedure: 02/26/18 Preoperative diagnosis: Nasal obstruction secondary to septal deformity and turbinate hypertrophy Postoperative diagnosis: Same Procedure: Nasal septoplasty, therapeutic outfracture and subsequent submucosal cautery of inferior turbinates Anesthesia: General per Jack Rosales Details of procedure: The patient was transported to the operating room and placed on the OR table in the supine position. After the administration of adequate general anesthesia using an LMA the patient was appropriately positioned, eyes were treated and taped closed. Nasal exam revealed severe septal deviation to the right side with virtually 100% obstruction of the right nasal chamber. A large concave surface was noted on the left side. Turbinates were hypertrophic easily recognized on the left side but not quite as apparent until the septum was later replaced to the midline position. Over 10 years ago this young fellow underwent adenoidectomy and removal of a large posterior nasal septal spur. At that time intervention on the septum was not undertaken as he was still growing and the septum at that time did not seem as badly displaced to the right side. Over a decade, and possibly with some nasal trauma, the septum developed in a fashion to tilt severely to the right side closing the right nasal chamber at the vestibule and nasal valve region. Cottonoid pledgets soaked in Lenny-Synephrine Xylocaine mixture were placed into the nasal chamber to bring about vasoconstriction. 1% Xylocaine with epinephrine 1-100,000 was used to infiltrate the septum and the submucosal plane in the left side of the septum as well as inferiorly along the right maxillary crest region. Later in the procedure the inferior turbinates were also injected with small quantity of this local anesthetic. After allowing adequate time for the vasoconstrictive effects to take place a right hemitransfixion incision was created with #15 scalpel and the soft tissues were elevated in the subperichondrial plane along the left side of the septum. An inferior tunnel was created on the right side as well along the maxillary crest and the most inferior aspect of the quadrangular cartilage. At the chondro-osseous junction of the septum Wallback elevator was used to make a cut so that a posterior tunnel could be elevated on the right side as well. The remaining portion of perpendicular plate of ethmoid was removed after double-action scissors were used to make superior and inferior cuts. Quadrangular cartilage was freed from the maxillary crest anteriorly and the inferior aspect was slightly shaved to allow it to have better positioning and articulation with the maxillary crest. This was positioned without buckling afterward. The improvement in the nasal airway was substantial. During the dissection a small tear occurred in the right septal flap. This was thought to be advantageous as it is important to have some opening for egress of any retained serosanguineous fluid between the mucoperichondrial flaps. No tear or defect occurred on the left side of the mucoperichondrial flap. Septum was repositioned in the midline and as described above, and sat vertically without any buckling. The hemitransfixion incision was closed with interrupted suture of 4-0 chromic. The inferior turbinates were then laterally outfractured and treated with the Sree bipolar probe. The probe was placed into the anterior aspect of the turbinate, current was applied and when appropriate blanching was evident the probe was advanced the length of the turbinate accomplishing submucosal or intramural cautery. The posterior tips received additional cautery with benefit of the 0 degree endoscope for guidance. The airway appeared to be greatly improved and the septum was supported with placement of Pfeiffer airway splints first coated in antibiotic ointment introduced into the nasal chamber and secured anteriorly with a single suture of 3-0 Ethilon. A nasal drip pad was applied and the procedure was terminated. The patient tolerated the procedure well, did not sustain any intraoperative anesthetic or surgical complication, was taken to the recovery where he was noted to be in satisfactory condition. Vish Zuleta MD 02/26/18 1109 <Electronically signed by Vish Zuleta MD> Date Vish Zuleta MD CC: Vish Zuleta MD; Isra Hernandez MD Signed BEDSIDE GLUCOSE Collected: 02/26/2018 Status: F Source: BRYANNA 9:08 AM [facility] REPOSITORY TYPE CODE TESTS RESULT OUT OF REFERENCE UNITS RANGE LAB L501.080 70-110 mg/dL Low BEDSIDE GLU 64 Result Comment: MANAGEMENT OF PATIENT CARE PER NURSING PROTOCOL Performed By: #### L501.080 #### [facility] Point of Care [address] [place] [address] DISCHARGE INSTRUCTION Observed: 02/26/2018 Status: F Source: BRYANNA 8:53 AM [facility] REPOSITORY [facility] Medical Records Department [address] [place] [address] Instructions for Home/Discharge Instructions 02/26/18 0849 MR#: [id number] Acct: [id number] Name: LACI WATSON Rep #: [id number] : 1990 From: Vish Zuleta MD PCP: Isra Hernandez MD Status: REG [facility] You will use the following diet at home:: No restrictions Discharge Activity: Return to Normal Activity - Head of bed elevation. Do not blow nose but may rinse with saline and sniff and clear multiple times per day. Also may use Afrin nasal spray to reduce any congestion or oozing, should that occur. Take antibiotic as prescribed. Allergies/Adverse Reactions: Allergies No Known Allergies Allergy (Verified 02/19/18 13:15) Medications to take at Discharge Atorvastatin Calcium [Lipitor] 10 mg PO QHS 02/19/18 Glimepiride [Amaryl] 2 mg PO DAILY 02/19/18 Lisinopril [Zestril] 5 mg PO DAILY 02/19/18 Metformin HCl [Glucophage] 1,000 mg PO BIDCM 02/19/18 Sitagliptin Phosphate [Januvia] 50 mg PO DAILY 02/19/18 Test Results: Test results from this visit will be discussed in further detail at your follow-up appointment, if applicable. Please Follow Up With: Vish Zuleta MD - call for appointment to remove splints 03-10-18 02/26/18 0853 <Electronically signed by Vish Zuleta MD> Date Vish Zuleta MD CC: Isra Hernandez MD SEPTUM Observed: 02/26/2018 Status: F Source: BRYANNA 7:30 AM [facility] REPOSITORY Patient: LACI WATSON : 1990 (27/M) Acct Num: [id number] Phys: Song [place],Vish Unit Num: [id number] Loc: [facility] Specimen: [id number] Received: 02/26/18 - 1039 Spec Type: SEPTUM TISSUES 1 TISSUES: Nasal septum, NOS GROSS DESCRIPTION Received in fixative is one container labeled with the patient's name and designated nasal septum and cartilage. The specimen consists of multiple pieces of bone and cartilage that in aggregate measure 2.5 x 1.5 x 0.3 cm. The entire specimen is submitted in one cassette after decalcification. / SAROJ:delia TC: 5 CPT: 60138, 76209 HEADER OPERATION: Septoplasty, turbinate cautery PRE-OP DIAGNOSIS: Nasal congestion, deviated nasal septum, hypertrophy of nasal turbinates TISSUE SUBMITTED: Septum and cartilage MICROSCOPIC DESCRIPTION Slides are reviewed. MICROSCOPIC DIAGNOSIS Septum and cartilage: Fragments of cartilage and bone, clinically deviated nasal septum. SJ:delia 03/04/18 Signed Carlos Lucas 03/04/18 <signature on file> Performed By: #### PSEP #### [facility] [address] [place], [place], [address] BEDSIDE GLUCOSE Collected: 02/26/2018 Status: F Source: BRYANNA 6:16 AM [facility] REPOSITORY TYPE CODE TESTS RESULT OUT OF RANGE REFERENCE UNITS LAB L501.080 70-110 mg/dL Normal BEDSIDE GLU 82 Result Comment: MANAGEMENT OF PATIENT CARE PER NURSING PROTOCOL Performed By: #### L501.080 #### [facility] Point of Care [address] [place] [address] HEMOGLOBIN A1C Collected: 02/26/2018 Status: F Source: BRYANNA 6:05 AM [facility] REPOSITORY Order Comment: DELAY IN TESTING DUE TO INSTRUMENT BEING DOWN. MACARIO IN AC NOTIFED AT 0710 BY SHEYLA. TYPE CODE TESTS RESULT OUT OF RANGE REFERENCE UNITS LAB L501.9985 4.2-6.3 % Normal HGB A1C 5.6 Performed By: #### L501.9985 #### [facility] [address] [place], [address] MICROALB:CREAT Collected: 12/29/2017 Status: F Source: BRYANNA RATIO,RANDOM UR 10:41 AM [facility] REPOSITORY TYPE CODE TESTS RESULT OUT OF RANGE REFERENCE UNITS LAB L501.1200 NO RANGE EST. mg/dL Normal UR CREAT 112.00 LAB L502.0500 NO RANGE EST. mg/L Normal 8.5 MICROALBUMIN ,UR LAB L502.0600 <30 mg/g CRE mg/g CRE Normal 7.6 MALB:CREAT Performed By: #### L502.0250 #### [facility] [address] [place], [address] BASIC METABOLIC Collected: 12/29/2017 Status: F Source: BRYANNA PROFILE (BMP) 10:41 AM [facility] REPOSITORY TYPE CODE TESTS RESULT OUT OF RANGE REFERENCE UNITS LAB L501.0100 74-106 mg/dL High GLU 107 Result Comment: Fasting Glucose result from 100 to 125 mg/dL suggests IMPAIRED HOMEOSTASIS per A.D.A. criteria. Please note revised GLUCOSE reference range effective 2017. LAB L501.1000 7-18 mg/dL Normal BUN 11 LAB L501.1100 0.70-1.30 mg/dL Normal CREAT,SERUM 0.70 Result Comment: The validity of the calculated GFR AND GFRAA in patients over 70 years has not been determined. Clinical correlation is essential. LAB L501.1110 >60 mL/min Normal EST GFR 145 Result Comment: Non- GFR Calc LAB L501.1115 >60 mL/min Normal EST GFR - AA 175 Result Comment: GFR Calc LAB L501.1300 10-20 RATIO Normal BUN/CRE 15.6 LAB L501.2200 8.5-10.1 mg/dL CA Normal 9.3 LAB L501.5300 136-145 mmol/L NA Normal 138 LAB L501.5600 3.5-5.1 mmol/L K Normal 4.2 LAB L501.5900 98-107 mmol/L CL Normal 106 LAB L501.6100 21.0-32.0 mmol/L Normal CO2 23.0 LAB L501.6200 5-15 Normal GAP 9 Performed By: #### L500.2500, L500.3400, L500.4100 #### [facility] [address] [place], [place], [id number] LIVER PROFILE Collected: 12/29/2017 Status: F Source: CORNE[place] 10:41 AM [facility] REPOSITORY TYPE CODE TESTS RESULT OUT OF RANGE REFERENCE UNITS LAB L501.1500 6.4-8.2 g/dL Normal T PROT 7.8 LAB L501.1800 3.2-5.0 g/dL Normal ALB 3.8 LAB L501.1950 2.2-4.2 g/dL Normal GLOB 4.0 LAB L501.4100 15-37 U/L Low AST 14 LAB L501.4305 45-117 U/L Low ALK P 43 LAB L501.4405 16-61 U/L Normal ALT 16 LAB L501.4600 0.20-1.00 mg/dL Normal T BILI 0.90 LAB L501.4700 0.00-0.30 mg/dL Normal D BILI 0.18 Performed By: #### L500.2500, L500.3400, L500.4100 #### [facility] [address] [place], [place], [id number] LIPID PROFILE Collected: 12/29/2017 Status: F Source: COR[place] 10:41 [facility] REPOSITORY TYPE CODE TESTS RESULT OUT OF RANGE REFERENCE UNITS LAB L501.4900 200 mg/dL Normal CHOL 90 Result Comment: <200 mg/dL Desirable 200-240 mg/dL Borderline >240 mg/dL High Risk LAB L501.5000 mg/dL High TRIG 258 Result Comment: The drugs N-Acetylcysteine and Metamizole may falsely depress this assay. Serum Triglycerides Reference Interval Normal <150 mg/dL Borderline high 150 - 199 mg/dL High 200 - 499 mg/dL Very High > or = 500 mg/dL LAB L501.6400 mg/dL Low HDL 21 Result Comment: The drugs N-Acetylcysteine and Metamizole may falsely depress this assay. Reference Range HDL <40 mg/dL Low HDL Cholesterol HDL >or= 60 mg/dL High HDL Cholesterol LAB L501.6500 0-130 mg/dL Normal LDL 17 LAB L501.6600 5-40 mg/dL High VLDL 52 Performed By: #### L500.2500, L500.3400, L500.4100 #### [facility] [address] [place], [address] TESTOSTERONE, SERUM TOTAL Collected: 12/29/2017 Status: F Source: BRY[place] 10:41 AM [facility] REPOSITORY TYPE CODE TESTS RESULT OUT OF REFERENCE UNITS RANGE LAB L509.3000 ng/dL Testosterone Normal 727.35 Result Comment: NORMAL REFERENCE RANGES MALE AGE <50 123.06 - 813.86 ng/dL MALE AGE >50 89.98 - 780.10 ng/dL FEMALE PREMENOPAUSE AGE 21 - 60 9.01 - 47.94 ng/dL FEMALE POSTMENOPAUSE AGE 45 - 89 <7.00 - 45.62 ng/dL REFERENCE RANGE AND METHODOLOGY CHANGED 04/23/2017 Performed By: #### L509.3000 #### [facility] [address] [place], [address] BASIC METABOLIC Collected: 09/18/2017 Status: F Source: BRYANNA PROFILE (BMP) 3:17 PM [facility] REPOSITORY TYPE CODE TESTS RESULT OUT OF RANGE REFERENCE UNITS LAB L501.0100 74-106 mg/dL High GLU 206 Result Comment: Glucose result greater than or equal to 200 mg/dL suggests DIABETES MELLITUS per A.D.A. criteria. Please note revised GLUCOSE reference range effective 2017. LAB L501.1000 7-18 mg/dL Normal BUN 8 LAB L501.1100 0.70-1.30 mg/dL Normal CREAT,SERUM 0.79 Result Comment: The validity of the calculated GFR AND GFRAA in patients over 70 years has not been determined. Clinical correlation is essential. LAB L501.1110 >60 mL/min Normal EST GFR 128 Result Comment: Non- GFR Calc LAB L501.1115 >60 mL/min Normal EST GFR - AA 155 Result Comment: GFR Calc LAB L501.1300 10-20 RATIO Normal BUN/CRE 10.2 LAB L501.2200 8.5-10.1 mg/dL CA Normal 9.4 LAB L501.5300 136-145 mmol/L Low NA 135 LAB L501.5600 3.5-5.1 mmol/L K Normal 4.3 Result Comment: Slight Hemolysis, Result may be falsely increased. LAB L501.5900 98-107 mmol/L Normal CL 104 LAB L501.6100 21.0-32.0 mmol/L Normal CO2 21.0 LAB L501.6200 5-15 Normal GAP 10 Performed By: #### L500.2500, L500.3400, L500.4100 #### [facility] [address] [place], [address] LIVER PROFILE Collected: 09/18/2017 Status: F Source: CORNELL 3:17 PM [facility] REPOSITORY TYPE CODE TESTS RESULT OUT OF RANGE REFERENCE UNITS LAB L501.1500 6.4-8.2 g/dL High T PROT 9.1 LAB L501.1800 3.2-5.0 g/dL Normal ALB 4.0 LAB L501.1950 2.2-4.2 g/dL High GLOB 5.1 LAB L501.4100 15-37 U/L Normal AST 25 Result Comment: Slight Hemolysis, Result may be falsely increased. LAB L501.4305 45-117 U/L Normal ALK P 66 LAB L501.4405 16-61 U/L Normal ALT 27 LAB L501.4600 0.20-1.00 mg/dL Normal T BILI 0.70 LAB L501.4700 0.00-0.30 mg/dL Normal D BILI 0.14 Performed By: #### L500.2500, L500.3400, L500.4100 #### [facility] [address] [place], [place], [id number] LIPID PROFILE Collected: 09/18/2017 Status: F Source: CORNE[place] 3:17 PM [facility] REPOSITORY TYPE CODE TESTS RESULT OUT OF RANGE REFERENCE UNITS LAB L501.4900 200 mg/dL Normal CHOL 179 Result Comment: <200 mg/dL Desirable 200-240 mg/dL Borderline >240 mg/dL High Risk LAB L501.5000 mg/dL High TRIG 356 Result Comment: The drugs N-Acetylcysteine and Metamizole may falsely depress this assay. Serum Triglycerides Reference Interval Normal <150 mg/dL Borderline high 150 - 199 mg/dL High 200 - 499 mg/dL Very High > or = 500 mg/dL LAB L501.6400 mg/dL Low HDL 22 Result Comment: The drugs N-Acetylcysteine and Metamizole may falsely depress this assay. Reference Range HDL <40 mg/dL Low HDL Cholesterol HDL >or= 60 mg/dL High HDL Cholesterol LAB L501.6500 0-130 mg/dL Normal LDL 86 LAB L501.6600 5-40 mg/dL High VLDL 71 Performed By: #### L500.2500, L500.3400, L500.4100 #### [facility] [address] [place], [address] MICROALB:CREAT Collected: 09/18/2017 Status: F Source: CORNELL RATIO,RANDOM UR 3:17 PM [facility] REPOSITORY TYPE CODE TESTS RESULT OUT OF RANGE REFERENCE UNITS LAB L501.1200 NO RANGE EST. mg/dL Normal UR CREAT 303.00 LAB L502.0500 NO RANGE EST. mg/L Normal 588.0 MICROALBUMIN ,UR LAB L502.0600 <30 mg/g CRE mg/g CRE High 194.1 MALB:CREAT Performed By: #### L502.0250 #### [facility] [address] [place], [address] N GONORRHOEAE PCR ([facility]) Collected: 09/18/2017 Status: F Source: CORNELL 3:17 PM [facility] REPOSITORY TYPE CODE TESTS RESULT OUT OF RANGE REFERENCE UNITS LAB L8200.2200 Negative Normal NG by Negative PCR Performed By: #### L8200.2030 #### [facility] [address] [place], [address] TESTOSTERONE, SERUM TOTAL Collected: 09/18/2017 Status: F Source: BRYANNA 3:17 PM [facility] REPOSITORY TYPE CODE TESTS RESULT OUT OF REFERENCE UNITS RANGE LAB L509.3000 ng/dL Testosterone Normal 28.56 Result Comment: NORMAL REFERENCE RANGES MALE AGE <50 123.06 - 813.86 ng/dL MALE AGE >50 89.98 - 780.10 ng/dL FEMALE PREMENOPAUSE AGE 21 - 60 9.01 - 47.94 ng/dL FEMALE POSTMENOPAUSE AGE 45 - 89 <7.00 - 45.62 ng/dL REFERENCE RANGE AND METHODOLOGY CHANGED 04/23/2017 Performed By: #### L509.3000, L3890.6005 #### [facility] [address] [place], [address] HIV - [facility] Collected: 09/18/2017 Status: F Source: CORNELL 3:17 PM [facility] REPOSITORY TYPE CODE TESTS RESULT OUT OF RANGE REFERENCE UNITS LAB L3890.6005 Nonreactive Normal HIV - [facility] Non-Reactive Performed By: #### L509.3000, L3890.6005 #### [facility] [address] [place], [address] ALLERGIES ALLERGIES DATE TYPE / CODE NAME / CODE REACTION SEVERITY SOURCE 04/01/2018 Drug No Known Unknown [facility] Allergy/4160 Allergies/F00 Hospital 94232(SNOMED 6423000(RXNOR Repository CT) M) ENCOUNTERS ENCOUNTERS ADMIT/DISCHARGE ACCOUNT ADMITTING ENCOUNTER LOCATION SOURCE NUMBER CLASS 04/02/2018 [id number] Ambulatory BMS[place] 6 [place] Repository 04/02/2018 [id number] Ambulatory [place] 5 [facility] ing:[facility] Repository 04/01/2018/ [id number] Ambulatory BMSBuilding:B [place] 8 5 [place] Repository 04/01/2018 [id number] [place] 2 [facility] ing:MFPLAB Repository 03/31/2018 [id number] Ambulatory BMSBuilding:B [place] 8 [place] Repository 03/19/2018/ [id number] Emergency [place] 8 5 [facility] ing:ED Repository 02/26/2018/ [id number] Ambulatory [place] 8 3 [facility] ing:SDCRoom: Repository AC02 12/29/2017 [id number] Ambulatory [place] 2 [facility] ing:MFPLAB Repository 09/18/2017 [id number] Ambulatory [place] 6 [facility] ing:MFPLAB Repository PAYERS PAYERS ENCOUNTER GUARANTOR PAYER SUBSCRIBER SOURCE 04/02/2018 LACI L Primary LARA W [place] [id number] Insurance:MEDICAL YANKELLODOB: [address], [place] Number: Repository [address]Elq: 330 [id number] [phone] (HP) Date:0123-24-54QZ [address] [place] [phone]: 04/02/2018 Secondary NOT GIVENUNK [place] Insurance:SELF PAY [facility] Number: Effective Repository Date:2018-04-02 04/02/2018 LACI L Primary LARA W [place] [id number] Insurance:MEDICAL YANKELLODOB: [address] Number: Repository [id number]: 330 [id number] [phone] (HP) Date:1832-60-67VV [address] [place] [id number]: 04/02/2018 Secondary NOT GIVENUNK [place] Insurance:SELF PAY [facility] Number: Effective Repository Date:2018-04-01 04/01/2018 LACI L Primary LARA W [place] [id number] [facility] [address] Number: Repository [address]Yks: 330 [id number] [phone] (HP) Date:3590-32-28FY [address] [place] [phone]: 04/01/2018 Secondary NOT GIVENUNK [place] Insurance:SELF PAY [facility] Number: Effective Repository Date:2018-04-01 04/01/2018 LACI L Primary LARA W [place] [id number] Insurance:MEDICAL YANKELLODOB: [facility] [id number] Number: Repository [address]Mbs: 330 [id number] [phone] (HP) Date:4966-55-20XQ [address] [place] [phone]: 04/01/2018 Secondary NOT GIVENUNK [place] Insurance:SELF PAY [facility] Number: Effective Repository Date:2018-04-01 03/31/2018 LACI L Primary LARA W [place] [id number] Insurance:MEDICAL YANKELLODOB: [facility] [id number] Number: Repository [address]Kaw: 330 [id number] [phone] (HP) Date:0887-35-13MN [address] [place] [phone]: 03/31/2018 Secondary NOT GIVENUNK [place] Insurance:SELF PAY [facility] Number: Effective Repository Date:2018-03-31 03/19/2018 LACI L Primary LARA W [place] [id number] Insurance:MEDICAL YANKELLODOB: [facility] [id number] Number: Repository [address]Npg: 330 [id number] [phone] (HP) Date:6624-69-30ES [address] [place] [phone]: 03/19/2018 Secondary NOT GIVENUNK [place] Insurance:SELF PAY [facility] Number: Effective Repository Date:2018-03-19 02/26/2018 LACI L Primary LARA W [place] [id number] Insurance:MEDICAL YANKELLODOB: [facility] [id number] Number: Repository [address]Uku: 330 [id number] [phone] (HP) Date:7416-97-59KI [address] [place] [phone]: 02/26/2018 Secondary NOT GIVENUNK [place] Insurance:SELF PAY [facility] Number: Effective Repository Date:2018-02-03 12/29/2017 Laci Pal Primary Lara W [place] [id number] Insurance:MEDICAL YankelloDOB: [facility] [id number]: Repository [id number]: 330 [id number] [phone] () Date:1140-03-97ZQ [address] [place] [id number]: 12/29/2017 Secondary NOT GIVENUNK [place] Insurance:SELF PAY [facility] Number: Effective Repository Date:2017-12-29 09/18/[address] [facility] Lara W [place] [id number] Insurance:MEDICAL YankelDOB: [facility] [id number] Number: Repository [address]Ebk: 330 [id number] [phone] () Date:5375-16-15CB [address] [place] [phone]: 09/18/2017 Secondary NOT GIVENUNK [place] Insurance:SELF PAY [facility] Number: Effective Repository Date:2017-09-18
== END ==
PROVIDERS: Family Provider Family Medicine; PCP Family Medicine; Visit Provider Family Medicine
DX: E11.9 Type 2 diabetes mellitus without complications (principal); E34.9 Endocrine disorder, unspecified
CPT/HCPCS: 36415; 84403; 84443

== ENCOUNTER → 2018-04-02 14:50 | Outpatient (CLI) | payer OTHER, SELFPAY ==
[2018-04-01 13:28] VITALS: BMI 28.3
--- NOTE | 2018-04-02 14:55 | ECHOD_ITS ---
Reason For Study: Arrhythmia Procedure This was a 2D Doppler, Color Flow transthoracic echocardiogram. Exam performed in department. Left Ventricle Normal LV size. The estimated ejection fraction is 53 %. No evidence for diastolic dysfunction. Left ventricular systolic function is lower limits of normal. No regional wall motion abnormalities noted. Right Ventricle Normal RV size. Normal systolic function. Atria Normal right atrium. Mitral Valve Normal mitral valve. Tricuspid Valve Normal tricuspid valve. Mild (1+) tricuspid valve insufficiency. Aortic Valve Normal aortic valve. Pulmonic Valve Normal pulmonic valve. Great Vessels Normal aortic root. The pulmonary artery is normal size. Normal inferior vena cava. Pericardium/Pleural No pericardial effusion. MMode/2D Measurements & Calculations LVIDd: 4.2 cm IVSd: 1.0 cm Ao root diam: 3.6 cm LVIDs: 2.9 cm LVPWd: 0.92 cm LA dimension: 2.9 cm FS: 31.3 % LAV(MOD-sp4): 28.6 ml LA A4 area: 14.4 cm2 RA A4 area: 12.6 cm2 Time Measurements MV dec time: 0.20 sec Doppler Measurements & Calculations MV E max marvin: 61.5 cm/sec Lat Peak E' Marvin: 11.1 cm/sec Med Peak E' Marvin: 7.7 cm/sec MV A max marvin: 53.9 cm/sec E/E' lat: 5.5 E/E' med: 7.9 MV E/A: 1.1 MV V2 max: 62.9 cm/sec MV P1/2t max marvin: 62.9 cm/sec Ao V2 max: 86.7 cm/sec MV max P.6 mmHg MV P1/2t: 88.4 msec Ao max P.0 mmHg MV V2 mean: 42.1 cm/sec MV dec slope: 208.6 cm/sec2 Ao V2 mean: 56.3 cm/sec MV mean P.82 mmHg MVA(P1/2t): 2.5 cm2 Ao mean P.5 mmHg MV V2 VTI: 20.7 cm Ao V2 VTI: 15.6 cm LV V1 max: 70.1 cm/sec PA V2 max: 77.6 cm/sec TR max marvin: 186.4 cm/sec LV V1 max P.0 mmHg TR max P.9 mmHg LV V1 mean P.1 mmHg LV V1 mean: 49.1 cm/sec LV V1 VTI: 14.2 cm Interpretation Summary Normal LV size. The estimated ejection fraction is 53 %. No evidence for diastolic dysfunction. No regional wall motion abnormalities noted. Left ventricular systolic function is lower limits of normal. Ordering Physician: Pacheco Guillermo Referring Physician: Isra Hernandez Performed By: Beau Arellano RCS
--- OUTSIDE RECORDS SUMMARY | 2018-05-28 20:25 | XMS RPT_ITS ---
:1990 Author Organization OHIP Support Name Relationship Address Phone WILDGINGER Unavailable [address] + [place] [address] KATJA WATSONI Unavailable [address] + [place] [address] CATRINA WATSON Unavailable [address] + [place] [address] WILDGINGER Unavailable [address] + [place] [address] LARA WATSON Unavailable [address] + [place] [address] [facility] Unavailable [address] + [place] [address] WILDGINGER Unavailable [address] + [place] [address] LARA WATSON Unavailable [address] + [place] [address] WILDGINGER Unavailable [address] + [place] [address] LARA WATSON Unavailable [address] + [place] [address] WILDGINGER Unavailable [address] + [place] [address] LARA WATSON Unavailable [address] + [place] [address] WILDGINGER Unavailable [address] + [place] [address] LARA WATSON Unavailable [address] + [place] [address] WILDGINGER Unavailable [address] + [facility] [place] [address] KATJA WATSONI Unavailable [address] + [place] [address] UE Unavailable Unavailable Unavailable KATJA WATSONI Unavailable [address] + [place] [address] UE Unavailable Unavailable Unavailable KATJA WATSONI Unavailable [address] + [place] [address] Care Team Providers Name Role Phone Isra Hernandez Attending Unavailable Mary, Isra Primary Care Unavailable Mary, Isra Attending Unavailable Mary, Isra Primary Care Unavailable Vish Zuleta Attending Unavailable Vish Zuleta Referring Unavailable Mary, Isra Primary Care Unavailable Hernandez, Isra Primary Care Unavailable Isra Pierson Attending Unavailable Georgia Alvarez Attending Unavailable Hernandez, Isra Attending Unavailable Mary, Isra Primary Care Unavailable Eagle, Hazen Attending Unavailable Mary, Isra Referring Unavailable Eagle, Pacheco Attending Unavailable Eagle, Pacheco Referring Unavailable Mary, Isra Primary Care Unavailable Eagle, Hazen Attending Unavailable Eagle, Pacheco Referring Unavailable Hernandez, Isra Primary Care Unavailable Eagle, Hazen Consulting Unavailable PROBLEMS PROBLEMS DATE TYPE CONDITION / CODE ATTENDING STATUS SOURCE Unknown I47.1 - Supraventricular Eagle, Pacheco Active [place] tachycardia / Community I47.1(ICD-10) Hospital Repository Unknown I10 - Essential (primary) Eagle, Pacheco Active [place] hypertension / Community I10(ICD-10) Hospital Repository Unknown E78.00 - Pure Eagle, Hazen Active [place] hypercholesterolemia, Community unspecified / Hospital E78.00(ICD-10) Repository Unknown E78.0 - Pure Eagle, Pacheco Active [place] 8 hypercholesterolemia / Community E78.0(ICD-10) Hospital Repository Unknown E11.9 - Type 2 diabetes Isra Hernandez Active [place] 8 mellitus without Community complications / Hospital E11.9(ICD-10) Repository Unknown E34.9 - Endocrine Isra Hernandez Active [place] disorder, unspecified / Community E34.9(ICD-10) Hospital Repository Unknown Z20.2 - Contact with and Isra Hernandez Active [place] 8 (suspected) exposure to Community infections with a Hospital predominantly sexual mode Repository of transmission / Z20.2(ICD-10) Unknown N52.9 - Male erectile Isra Hernandez Active [place] dysfunction, unspecified Community / N52.9(ICD-10) Hospital Repository PROCEDURES PROCEDURES No Procedure Records FoundRESULTS RESULTS ECHOCARDIOGRAM COMPLETE Observed: 04/06/2018 Status: F Source: [place] 7:44 AM [facility] REPOSITORY [facility] Cardiovascular Services [address] [place] [address] Echo Complete 04/02/18 1456 MR#: [id number] Acct: [id number] Name: LACI WATSON Rep #: [id number] : 1990 From: Pacheco Guillermo MD Attending [...] Date Dictated: 04/02/18 1456 Date Transcribed: 04/06/1843 Light Equipment Operator: Signed 12 LEAD ELECTROCARDIOGRAM Observed: 04/03/2018 Status: F Source: [place] 9:12 AM [facility] REPOSITORY [facility] Cardiovascular Services [address] [place] [address] 12 Lead EKG 03/20/18 0116 MR#: [id number] Acct: [id number] Name: LACI WATSON Rep #: [id number] : 1990 27 From: Pacheco Guillermo MD [...] ECG Confirmed by PACHECO GUILLERMO MD ([id number]), acquisitions editor HELEN HENRIQUEZ ([id number]) on 03/25/2018 11:24:49 AM Referred By: DRAKE Confirmed By:PACHECO GUILLERMO MD 03/25/18 1124 Date Pacheco Guillermo MD CC: Isra Pierson MD; Isra Hernandez MD Signed CARDIOLOGY VISIT Observed: 04/01/2018 Status: F Source: [place] REPORT 2:06 PM [facility] REPOSITORY [place] [facility] [address] [place] [address] OFFICE VISIT Date of Service: 04/01/18 MR#: [id number] Acct: [id number] Name: LACI WATSON Rep #: [id number] : 1990 Provider: Pacheco Guillermo MD Age/Sex: 27/M [place] 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) Coding Level of Care Code Off vis,new,level [...] Status: F Source: [place] (TSH) 11:46 AM [facility] REPOSITORY TYPE CODE TESTS RESULT OUT OF RANGE REFERENCE UNITS LAB L501.9520 0.358-3.74 uIU/mL Normal TSH 3.10 Performed By: #### L501.9520 #### [facility] [address] [place], [address] TESTOSTERONE, SERUM TOTAL Collected: 04/01/2018 Status: F Source: [place] 11:46 AM [facility] REPOSITORY TYPE CODE TESTS RESULT OUT OF [...] CHANGED 04/23/2017 Performed By: #### L509.3000 #### [facility] [address] [facility] [place], [address] EMERGENCY DEPARTMENT Observed: 03/20/2018 Status: F Source: [place] SUMMARY 1:16 AM [facility] REPOSITORY [facility] Medical Records Department [address] [place] [address] Emergency Department Summary 03/20/18 0033 MR#: [id number] Acct: [id number] Name: LACI WATSON Rep #: [id number] : 1990 27 From: Isra Pierson MD [...] Supraventricular tachycardia This note was generated with [employer] dictation software. It may contain incorrect words, spelling, and punctuation that were not noted in review of the chart prior to signing ED Disposition - Plan for ED Patient: Disposition: Home or Assisted Living Chief Complaint: Chest Pain Instructions: ED Tachycardia Pat PSVT Referrals: Pacheco uGillermo MD [STAFF PHYSICIAN] - 3-5 Days What to do if you have Problems For any increased pain, shortness of breath, bleeding, nausea or vomiting, chest pain, or any unexpected problems, contact your Primary Care Provider. Call [facility] ([phone]) or report to the closest Emergency Room. Call 911 if necessary. 03/20/18 0116 <Electronically signed by Isra Pierson MD> Date Isra Pierson MD Cosigner Signature (If Indicated): Date CC: Isra Hernandez MD BEDSIDE GLUCOSE Collected: 03/20/2018 Status: F Source: [place] 12:05 AM [facility] REPOSITORY TYPE CODE TESTS RESULT OUT OF RANGE REFERENCE UNITS LAB L501.080 70-110 mg/dL Normal BEDSIDE GLU 108 Result Comment: MANAGEMENT OF PATIENT CARE PER NURSING PROTOCOL Performed By: #### L501.080 #### [facility] Point of Care [address] [place] [address] CBC W/DIFF, AUTOMATED Collected: 03/19/2018 Status: F Source: [place] 11:58 PM [facility] REPOSITORY TYPE CODE TESTS RESULT OUT OF [...] Lymph 6.57 Performed By: #### L100.0100 #### [facility], [address] COMPREHENSIVE METABOLIC Collected: 03/19/2018 Status: F Source: [place] [facility] 11:58 PM [facility] REPOSITORY TYPE CODE TESTS RESULT OUT OF [...] Normal 11 Performed By: #### L500.4050 #### [facility] [address] [place], [place], [address] OPERATIVE REPORT Observed: 02/26/2018 Status: F Source: [place] 11:09 AM [facility] REPOSITORY [facility] Medical Records Department [address] [place] [address] Operative Report 02/26/18 1055 MR#: [id number] Acct: [id number] Name: LACI WATSON Rep #: [id number] : 1990 27 From: Vish Zuleta MD PCP: Isra Hernandez MD Status: [facility] Y [place] [facility] [place] Report Date of Procedure: 02/26/18 Preoperative [...] At the chondro-osseous junction of the septum Mico elevator was used to make a cut [...] 02/26/2018 Status: F Source: [place] 9:08 AM [facility] REPOSITORY TYPE CODE TESTS RESULT OUT OF REFERENCE UNITS RANGE LAB L501.080 70-110 mg/dL Low BEDSIDE GLU 64 Result Comment: MANAGEMENT OF PATIENT CARE PER NURSING PROTOCOL Performed By: #### L501.080 #### [facility] Point of Care [address] [place] [address] DISCHARGE INSTRUCTION Observed: 02/26/2018 Status: F Source: [place] 8:53 AM [facility] REPOSITORY [facility] Medical Records Department [address] [place] [address] Instructions for Home/Discharge Instructions 02/26/18 0849 MR#: [id number] Acct: [id number] Name: LACI WATSON Rep #: [id number] : 1990 From: Vish Zuleta MD PCP: Isra Hernandez MD Status: [facility] You will use the following diet at [...] 02/26/2018 Status: F Source: [place] 7:30 AM [facility] REPOSITORY Patient: LACI WATSON : 1990 (27/M) Acct Num: [id number] Phys: Song CANA[place],Vish Unit Num: [id number] Loc: [facility] Specimen: [id number] Received: 02/26/18 - 1039 Spec Type: SEPTUM [...] after decalcification. / SAROJ:delia TC: 5 CPT: 23342, 43312 HEADER OPERATION: Septoplasty, turbinate cautery PRE-OP DIAGNOSIS: Nasal congestion, deviated nasal septum, hypertrophy of nasal turbinates TISSUE SUBMITTED: Septum and cartilage MICROSCOPIC DESCRIPTION Slides are reviewed. MICROSCOPIC DIAGNOSIS Septum and cartilage: Fragments of cartilage and bone, clinically deviated nasal septum. SJ:delia 03/04/18 Signed Carlos Lucas 03/04/18 <signature on file> Performed By: #### PSEP #### [facility] [address] [place], [place], [address] BEDSIDE GLUCOSE Collected: 02/26/2018 Status: F Source: [place] 6:16 AM [facility] REPOSITORY TYPE CODE TESTS RESULT OUT OF RANGE REFERENCE UNITS LAB L501.080 70-110 mg/dL Normal BEDSIDE GLU 82 Result Comment: MANAGEMENT OF PATIENT CARE PER NURSING PROTOCOL Performed By: #### L501.080 #### [facility] Point of Care [address] [place] [address] HEMOGLOBIN A1C Collected: 02/26/2018 Status: F Source: [place] 6:05 AM [facility] REPOSITORY Order Comment: DELAY IN TESTING DUE TO INSTRUMENT BEING DOWN. MACARIO IN AC NOTIFED AT 0710 BY SHEYLA. TYPE CODE TESTS RESULT OUT OF RANGE REFERENCE UNITS LAB L501.9985 4.2-6.3 % Normal HGB A1C 5.6 Performed By: #### L501.9985 #### [facility] [address] [place], [address] MICROALB:CREAT Collected: 12/29/2017 Status: F Source: [place] RATIO,RANDOM UR 10:41 AM [facility] REPOSITORY TYPE CODE TESTS RESULT OUT OF RANGE REFERENCE UNITS LAB L501.1200 NO RANGE EST. mg/dL Normal UR CREAT 112.00 LAB L502.0500 NO RANGE EST. mg/L Normal 8.5 MICROALBUMIN ,UR LAB L502.0600 <30 mg/g CRE mg/g CRE Normal 7.6 MALB:CREAT Performed By: #### L502.0250 #### [facility] [address] [place], [address] BASIC METABOLIC Collected: 12/29/2017 Status: F Source: [place] PROFILE (BMP) 10:41 AM [facility] REPOSITORY TYPE CODE TESTS RESULT OUT OF [...] Performed By: #### L500.2500, L500.3400, L500.4100 #### [facility] [address] [place], [place], [address] LIVER PROFILE Collected: 12/29/2017 Status: F Source: [place] 10:41 AM [facility] REPOSITORY TYPE CODE TESTS RESULT OUT OF [...] Performed By: #### L500.2500, L500.3400, L500.4100 #### [facility] [address] [place], [place], [address] LIPID PROFILE Collected: 12/29/2017 Status: F Source: [place] 10:41 [facility] REPOSITORY TYPE CODE TESTS RESULT OUT OF [...] Performed By: #### L500.2500, L500.3400, L500.4100 #### [facility] [address] [place], [address] TESTOSTERONE, SERUM TOTAL Collected: 12/29/2017 Status: F Source: [place] 10:41 AM [facility] REPOSITORY TYPE CODE TESTS RESULT OUT OF [...] CHANGED 04/23/2017 Performed By: #### L509.3000 #### [facility] [address] [place], [address] BASIC METABOLIC Collected: 09/18/2017 Status: F Source: [place] PROFILE (BMP) 3:17 PM [facility] REPOSITORY TYPE CODE TESTS RESULT OUT OF [...] Performed By: #### L500.2500, L500.3400, L500.4100 #### [facility] [address] [place], [address] LIVER PROFILE Collected: 09/18/2017 Status: F Source: [place] 3:17 PM [facility] REPOSITORY TYPE CODE TESTS RESULT OUT OF [...] Performed By: #### L500.2500, L500.3400, L500.4100 #### [facility] [address] [place], [place], [address] LIPID PROFILE Collected: 09/18/2017 Status: F Source: [place] 3:17 PM [facility] REPOSITORY TYPE CODE TESTS RESULT OUT OF [...] Performed By: #### L500.2500, L500.3400, L500.4100 #### [facility] [address] [place], [address] MICROALB:CREAT Collected: 09/18/2017 Status: F Source: [place] RATIO,RANDOM UR 3:17 PM [facility] REPOSITORY TYPE CODE TESTS RESULT OUT OF RANGE REFERENCE UNITS LAB L501.1200 NO RANGE EST. mg/dL Normal UR CREAT 303.00 LAB L502.0500 NO RANGE EST. mg/L Normal 588.0 MICROALBUMIN ,UR LAB L502.0600 <30 mg/g CRE mg/g CRE High 194.1 MALB:CREAT Performed By: #### L502.0250 #### [facility] [address] [place], [address] N GONORRHOEAE PCR ([facility]) Collected: 09/18/2017 Status: F Source: [place] 3:17 PM [facility] REPOSITORY TYPE CODE TESTS RESULT OUT OF RANGE REFERENCE UNITS LAB L8200.2200 Negative Normal NG by Negative PCR Performed By: #### L8200.2030 #### [facility] [address] [place], [address] TESTOSTERONE, SERUM TOTAL Collected: 09/18/2017 Status: F Source: [place] 3:17 PM [facility] REPOSITORY TYPE CODE TESTS RESULT OUT OF [...] 04/23/2017 Performed By: #### L509.3000, L3890.6005 #### [facility] [address] [place], [address] HIV - [facility] Collected: 09/18/2017 Status: F Source: [place] 3:17 PM [facility] REPOSITORY TYPE CODE TESTS RESULT OUT OF RANGE REFERENCE UNITS LAB L3890.6005 Nonreactive Normal HIV - [facility] Non-Reactive Performed By: #### L509.3000, L3890.6005 #### [facility] [address] [place], [address] ALLERGIES ALLERGIES DATE TYPE / CODE NAME / CODE REACTION SEVERITY SOURCE 04/01/2018 Drug No Known Unknown [facility] Allergy/4160 Allergies/F00 Hospital 68691(SNOMED [id number](RXNOR Repository CT) M) ENCOUNTERS ENCOUNTERS ADMIT/DISCHARGE ACCOUNT ADMITTING ENCOUNTER LOCATION SOURCE NUMBER CLASS 04/02/2018 [id number] Ambulatory BMSBuilding:B [place] 6 MS.CF[facility] Repository 04/02/2018 [id number] Ambulatory [place] [facility] ing:[facility] Repository 04/01/2018/ [id number] Ambulatory BMSBuilding:B [place] 5 MS.[facility] Repository 04/01/2018 [id number] Amb[place] [facility] ing:MFPLAB Repository 03/31/2018 [id number] Ambulatory BMSBuilding:B [place] 8 MS.[facility] Repository 03/19/2018/ [id number] Emergency [place] [facility] ing:ED Repository 02/26/2018/ [id number] Ambulatory [place] 8 3 [facility] ing:SDCRoom: Repository AC02 12/29/2017 [id number] Amb[place] [facility] ing:MFPLAB Repository 09/18/2017 [id number] Ambulatory [place] [facility] ing:MFPLAB Repository PAYERS PAYERS ENCOUNTER GUARANTOR PAYER SUBSCRIBER SOURCE 04/02/2018 LACI L Primary LARA W [place] [id number] Insurance:MEDICAL YANKELLODOB: [address], [place] Number: Repository [address]Crx: 330 [id number] [phone] (HP) Date:0154-84-72FP [address] [place] [phone]: 04/02/2018 Secondary NOT GIVENUNK [place] Insurance:SELF PAY [facility] Number: Effective Repository Date:2018-04-02 04/02/2018 LACI L Primary LARA W [place] [id number] Insurance:MEDICAL YANKELLODOB: [address] Number: Repository [id number]: 330 [id number] [phone] (HP) Date:3327-54-62KP [address] [place] [phone]: 04/02/2018 Secondary NOT GIVENUNK [place] Insurance:SELF PAY [facility] Number: Effective Repository Date:2018-04-01 04/01/2018 LACI L Primary LARA W [place] [id number] [facility] [address] Number: Repository [id number]: 330 [id number] [phone] (HP) Date:8543-34-33CN [address] [place] [phone]: 04/01/2018 Secondary NOT GIVENUNK [place] Insurance:SELF PAY [facility] Number: Effective Repository Date:2018-04-01 04/01/2018 LACI L Primary LARA W [place] [id number] Insurance:MEDICAL YANKELLODOB: [facility] [id number] Number: Repository [address]Uqt: 330 [id number] [phone] (HP) Date:2799-74-84LO [address] [place] [phone]: 04/01/2018 Secondary NOT GIVENUNK [place] Insurance:SELF PAY [facility] Number: Effective Repository Date:2018-04-01 03/31/2018 LACI L Primary LARA W [place] [id number] Insurance:MEDICAL YANKELLODOB: [facility] [id number] Number: Repository [id number]: 330 [id number] [phone] (HP) Date:0651-80-84XC [address] [place] [id number]: 03/31/2018 Secondary NOT GIVENUNK [place] Insurance:SELF PAY [facility] Number: Effective Repository Date:2018-03-31 03/19/2018 LACI L Primary LARA W [place] [id number] Insurance:MEDICAL YANKELLODOB: [facility] [id number] Number: Repository [id number]: 330 [id number] [phone] (HP) Date:6628-70-20WA [address] [place] [phone]: 03/19/2018 Secondary NOT GIVENUNK [place] Insurance:SELF PAY [facility] Number: Effective Repository Date:2018-03-19 02/26/2018 LACI L Primary LARA W [place] [id number] Insurance:MEDICAL YANKELLODOB: [facility] [id number] Number: Repository [address]Yxl: 330 [id number] [phone] (HP) Date:8335-63-41LA [address] [place] [phone]: 02/26/2018 Secondary NOT GIVENUNK [place] Insurance:SELF PAY [facility] Number: Effective Repository Date:2018-02-03 12/29/2017 Laci Pal Primary Lara W [place] [id number] Insurance:MEDICAL YankelloDOB: [facility] [id number] Number: Repository [id number]: 330 [id number] [phone] () Date:3986-22-38KH [address] [place] [phone]: 12/29/2017 Secondary NOT GIVENUNK [place] Insurance:SELF PAY [facility] Number: Effective Repository Date:2017-12-29 09/18/2017 Laci Pal [facility] Lara W [place] [id number] Insurance:MEDICAL YankelDOB: [facility] [id number], [place] Number: Repository [id number]: 330 [id number] [phone] () Date:2054-80-00UR [address] [place] [phone]: 09/18/2017 Secondary NOT GIVENUNK [place] Insurance:SELF PAY [facility] Number: Effective Repository Date:2017-09-18
== END ==
PROVIDERS: Family Provider Family Medicine; PCP Family Medicine; Referring Provider Internal Medicine Cardiovascular Disease; Visit Provider Internal Medicine Cardiovascular Disease
DX: I47.1 Supraventricular tachycardia (principal)
CPT/HCPCS: 93306

== ENCOUNTER → 2018-07-02 13:59 | Outpatient (CLI) | payer OTHER, SELFPAY ==
[2018-04-01 13:28] VITALS: BMI 28.3
[2018-07-02 17:23] LABS: AST(SGOT) 24 U/L (15-37); Alanine Aminotransfer ALT/SGPT 20 U/L (16-61); Albumin, Serum 4.2 g/dL (3.2-5.0); Alkaline Phosphatase 48 U/L (45-117); Anion Gap 13 (5-15); BUN 19 mg/dL (7-18); BUN/Creat Ratio 22.6 RATIO (10-20); Bilirubin, Direct 0.14 mg/dL (0.00-0.30); Calcium,Total 9.1 mg/dL (8.5-10.1); Chloride 108 mmol/L (98-107); Cholesterol 147 mg/dL (200); Creatinine, Serum 0.84 mg/dL (0.70-1.30); EST Glomerular Filtration Rate 118 mL/min (>60); Est Glom Filt Rate - Afr Amer 142 mL/min (>60); Globulin 3.9 g/dL (2.2-4.2); Glucose 71 mg/dL (74-106); High Density Lipoprotein 21 mg/dL; Potassium 4.1 mmol/L (3.5-5.1); Protein, Total 8.1 g/dL (6.4-8.2); Sodium Level 142 mmol/L (136-145); Thyroid Stim Hormone (TSH) 3.42 uIU/mL (0.358-3.74); Triglycerides 412 mg/dL
[2018-07-02 17:53] LABS: Microalbumin,Random Urine 6.1 mg/L (NO RANGE EST.); Microalbumin:Creatinine Ratio 4.9 mg/g CRE (<30 mg/g CRE)
== END ==
PROVIDERS: Family Provider Family Medicine; PCP Family Medicine; Referring Provider Family Medicine; Visit Provider Family Medicine
DX: E29.1 Testicular hypofunction (principal); F33.1 Major depressive disorder, recurrent, moderate; E11.9 Type 2 diabetes mellitus without complications; Z79.4 Long term (current) use of insulin
CPT/HCPCS: 36415; 80048; 80061; 80076; 82043; 82570; 84403; 84443

== ENCOUNTER → 2018-11-04 | Outpatient (CLI) | payer OTHER, SELFPAY ==
[2018-04-01 13:28] VITALS: BMI 28.3
[2018-11-04 13:02] LABS: Anion Gap 10 (5-15); BUN 16 mg/dL (7-18); BUN/Creat Ratio 15.5 RATIO (10-20); Chloride 105 mmol/L (98-107); Cholesterol 156 mg/dL (200); Creatinine, Serum 1.03 mg/dL (0.70-1.30); EST Glomerular Filtration Rate 93 mL/min (>60); Est Glom Filt Rate - Afr Amer 112 mL/min (>60); Glucose 93 mg/dL (74-106); High Density Lipoprotein 24 mg/dL; Potassium 4.5 mmol/L (3.5-5.1); Sodium Level 140 mmol/L (136-145); Triglycerides 241 mg/dL; Very Low Density Lipoprotein 48 mg/dL (5-40)
== END | disposition home or self-care (01) ==
LOC: MFPLAB 10:08
PROVIDERS: Family Provider Family Medicine; PCP Family Medicine; Referring Provider Family Medicine; Visit Provider Family Medicine
DX: E34.9 Endocrine disorder, unspecified (principal); E11.9 Type 2 diabetes mellitus without complications
CPT/HCPCS: 36415; 80048; 80061; 84403

== ENCOUNTER → 2019-06-24 14:04 | Outpatient (CLI) | payer MEDICAID, SELFPAY ==
[2018-04-01 13:28] VITALS: BMI 28.3
[2019-06-24 16:18] LABS: Anion Gap 5 (5-15); BUN 7 mg/dL (7-18); BUN/Creat Ratio 9.4 RATIO (10-20); Calcium,Total 9.5 mg/dL (8.5-10.1); Chloride 105 mmol/L (98-107); Cholesterol 204 mg/dL (200); Creatinine, Serum 0.74 mg/dL (0.70-1.30); EST Glomerular Filtration Rate 135 mL/min (>60); Est Glom Filt Rate - Afr Amer 163 mL/min (>60); Glucose 107 mg/dL (74-106); High Density Lipoprotein 15 mg/dL; Potassium 3.9 mmol/L (3.5-5.1); Sodium Level 138 mmol/L (136-145); Triglycerides 636 mg/dL
== END ==
PROVIDERS: PCP Family Medicine; Referring Provider Family Medicine; Visit Provider Family Medicine
DX: E34.9 Endocrine disorder, unspecified (principal); E11.9 Type 2 diabetes mellitus without complications
CPT/HCPCS: 36415; 80048; 80061; 84403

== ENCOUNTER → 2019-09-16 14:26 | Outpatient (CLI) | payer MEDICAID, SELFPAY ==
[2018-04-01 13:28] VITALS: BMI 28.3
[2019-09-16 15:49] LABS: Anion Gap 6 (5-15); BUN 13 mg/dL (7-18); BUN/Creat Ratio 14.3 RATIO (10-20); Calcium,Total 9.8 mg/dL (8.5-10.1); Chloride 108 mmol/L (98-107); Cholesterol 183 mg/dL (200); Creatinine, Serum 0.91 mg/dL (0.70-1.30); EST Glomerular Filtration Rate 106 mL/min (>60); Est Glom Filt Rate - Afr Amer 129 mL/min (>60); Glucose 112 mg/dL (74-106); High Density Lipoprotein 25 mg/dL; Potassium 4.5 mmol/L (3.5-5.1); Sodium Level 140 mmol/L (136-145); Triglycerides 367 mg/dL; Very Low Density Lipoprotein 73 mg/dL (5-40)
== END ==
PROVIDERS: PCP Family Medicine; Visit Provider Family Medicine
DX: E11.9 Type 2 diabetes mellitus without complications (principal)
CPT/HCPCS: 36415; 80048; 80061

== ENCOUNTER → 2019-12-16 16:12 | Outpatient (CLI) | payer MEDICAID, SELFPAY ==
[2018-04-01 13:28] VITALS: BMI 28.3
== END ==
PROVIDERS: PCP Family Medicine; Referring Provider Family Medicine; Visit Provider Family Medicine
DX: E34.9 Endocrine disorder, unspecified (principal)
CPT/HCPCS: 36415; 84403

== ENCOUNTER → 2020-03-21 | Outpatient (CLI) | payer MEDICAID, SELFPAY ==
[2018-04-01 13:28] VITALS: BMI 28.3
== END | disposition home or self-care (01) ==
LOC: LABSPEC 16:39
PROVIDERS: PCP Family Medicine; Referring Provider Family Medicine; Visit Provider Family Medicine
DX: J06.9 Acute upper respiratory infection, unspecified (principal)
CPT/HCPCS: 87635; U0003

== ENCOUNTER → 2020-10-12 16:09 | Outpatient (CLI) | payer MEDICAID, SELFPAY ==
[2018-04-01 13:28] VITALS: BMI 28.3
--- NOTE | 2020-10-12 16:12 | RAD_ITS ---
STUDY: X-RAY - LEFT TIBIA AND FIBULA REASON FOR EXAM: Left leg pain, mid anterior bruising, no specific injury. TECHNIQUE: 2 view(s) of the tibia and fibula were obtained. COMPARISON: None. FINDINGS: There is a small osteochondroma of the medial aspect of the proximal tibial metaphysis. Otherwise, unremarkable visualized tibia. Normal visualized fibula. The soft tissue structures are unremarkable. 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 Electronically Signed: Sree Klein MD at 9:21 EDT Tel , Service support ,
== END ==
PROVIDERS: PCP Family Medicine; Referring Provider Family Medicine; Visit Provider Family Medicine
DX: M79.606 Pain in leg, unspecified (principal)
CPT/HCPCS: 73590

== ENCOUNTER 2020-10-26 02:16 | Emergency (ER) | payer MEDICAID, SELFPAY ==
[2018-04-01 13:28] VITALS: BMI 28.3
[2020-10-26 02:17] VITALS: BP 122/80; PULSE 101; RESP 16; TEMP 36.6; O2SAT 99; BMI 34.0
--- NOTE | 2020-10-26 02:27 | EKG12_ITS ---
Test Reason : SYNCOPE Blood Pressure : / mmHG Vent. Rate : 093 BPM Atrial Rate : 093 BPM P-R Int : 178 ms QRS Dur : 114 ms QT Int : 356 ms P-R-T Axes : 046 026 036 degrees QTc Int : 442 ms Normal sinus rhythm Normal ECG Confirmed by KARINE CANADA, ELENA ([id number]), digital editor LORI CHRISTINA ([id number]) on 10/27/2020 12:57:53 PM Referred By: TL Confirmed By:ELENA MILTON MD
--- NOTE | 2020-10-26 02:27 | EX.ED.DYSGE1 ---
HPI History of Present Illness Chief Complaint: Syncope Informant: patient Onset/Context/Timing Onset: Today Narrative Narrative: Patient here with mother for evaluation of syncopal episode x2. He states half hour ago was on the commode trying to have a bowel movement when he felt pain in his lower abdomen he states he leaned over in the sink next the news he woke up falling off. He did not have a bowel movement that point. He states he got back on had a bowel movement that was normal nonbloody. He got up walking to his mother's room when he felt lightheaded and passed out again. Denies chest pains. Reported mild dyspnea. Denies cough. He states typically does not have trouble with bowel movements. Denies urinary symptoms. He is a diabetic on oral medications. Blood glucose was not recently checked. Denied previous similar symptoms in the past. Prior similar symptoms: No PFSH PFSH Medical History (Updated 10/26/20 @ 03:[address] Lex Hickey DO) Anxiety and depression Erectile dysfunction Essential (primary) hypertension Hyperlipidemia Obesity Supraventricular tachycardia (03/20/18) Type 2 diabetes mellitus Home Medications atorvastatin 10 mg PO QHS 02/19/18 [History Last Taken Unknown] glimepiride 2 mg PO DAILY 02/19/18 [History Last Taken Unknown] lisinopril 5 mg PO DAILY 02/19/18 [History Last Taken 02/26/18 05:20] metformin 1,000 mg PO BIDCM 02/19/18 [History Last Taken Unknown] sitagliptin 50 mg PO DAILY 02/19/18 [History Last Taken Unknown] citalopram 20 mg PO DAILY 03/20/18 [History Last Taken Unknown] testosterone cypionate 200 mg/mL intramuscular kit 100 mg IM Q2W 03/31/18 [History Last Taken Unknown] Allergy/AdvReac Type Severity Reaction Status Date / Time No Known Allergies Allergy Verified 10/26/20 02:20 Surgical History H/O adenoidectomy History of nasal septoplasty (02/2018) History of skin surgery Social History Smoking Status: Never smoker alcohol intake: never caffeine: Yes (2-3 daily) ROS ROS ED Constitutional Constitutional ED: Denies chills, fever(s) or sweats Eyes Eyes: Denies change in vision ENT ENT ED: Denies dysphagia or sore throat Cardiovascular Cardiovascular: Reports other Details: Syncope ; Denies chest pain, leg edema, palpitations or racing heartbeat Respiratory/Chest Respiratory/Chest: Denies cough, dyspnea or dyspnea on exertion Gastrointestinal Gastrointestinal: Reports abdominal pain; Denies diarrhea, nausea or vomiting Genitourinary Genitourinary ED: Denies dysuria, hematuria or urinary frequency Musculoskeletal Musculoskeletal: Denies back pain, extremity pain or neck pain Integumentary Denies rash or wounds Neurologic Neurologic: Denies headache(s), paresthesias or weakness EXAM Physical Exam Const Vital Signs: 10/26/20 02:17 Temperature 97.8 F Temperature Source Temporal Pulse Rate 101 H Respiratory Rate 16 Blood Pressure 122/80 H Blood Pressure Mean 94 Pulse Ox 99 Oxygen Delivery Method Room Air Positive well nourished and well developed General Appearance ED: well developed and NAD HEENT Reports dry mucous membranes HEENT Narrative: Mild dry mucosal membranes. normocephalic and atraumatic Mouth ED: Yes dry mucous membranes Mouth: dry mucous membranes Eyes PERRL, EOMs intact bilaterally and conjunctivae normal General Eye ED: Yes normal appearance of both eyes Neck no lymphadenopathy and supple General: Negative for tenderness Chest Wall Chest: Negative for tenderness Resp normal respiratory effort and normal air movement Effort and Inspection: symmetric chest movement; Negative for respiratory distress Cardio regular rate, regular rhythm and no murmurs Peripheral Pulses: pulses 2+ throughout GI normal to inspection, nondistended, normoactive bowel sounds and non-tender GI Narrative: Negative Arnett's or McBurney's tenderness. No tenderness in all 4 quadrant. Palpation: Negative for guarding or rebound tenderness present Back/Spine no CVA tenderness and no thoracic nor lumbar tenderness Extremity normal to inspection General Extremety ED: Negative for edema or tenderness General Extremity: Negative for edema Neuro oriented x3 and no sensory deficits noted Sensorium / Orientation: awake and alert Skin no rashes or lesions noted and no wounds MDM MDM MDM Narrative Medical decision making narrative: Patient no focal neurologic deficit. He had mild dry mucosal membranes. With his history abdominal pain prior to the syncopal episode concerns for vasovagal reaction. Had recurrent episode with lightheaded symptoms. Had dry mucosal membranes. He had no chest pains. EKG was normal. I did check labs normal hemoglobin at 15. Creatinine 1.14 sodium 133. Glucose 220. He is a diabetic. After IV fluids he felt better. He was able to ambulate with no return of symptoms. Discussed follow-up with his PCP for reevaluation further testing as needed. All questions were answered. Discharged with mother. Lab Data Attestation: I reviewed the patient's lab results. Labs: Laboratory Results - last 24 hr 10/26/20 10/26/20 10/26/20 02:35 02:35 02:57 WBC 11.2 H RBC 4.88 Hgb 15.0 Hct 42.7 MCV 87.5 MCH 30.7 MCHC 35.1 RDW Std Deviation 40.2 RDW Coeff of Pilar 12.7 Plt Count 283 MPV 9.4 Immature Gran % (Auto) 0.400 Neut % (Auto) 46.3 L Lymph % (Auto) 39.1 [place] % (Auto) 7.5 Eos % (Auto) 5.8 H Baso % (Auto) 0.9 Absolute Neuts (auto) 5.2 Absolute Lymphs (auto) 4.40 Nucleated RBC % 0 Sodium 133 L Potassium 5.2 H Chloride 100 Carbon Dioxide 26.0 Anion Gap 7 BUN 10 Creatinine 1.14 Estim Creat Clear Calc 106.83 Est GFR (MDRD) Af Amer 99 Est GFR (MDRD) Non-Af 81 BUN/Creatinine Ratio 8.8 L Glucose 220 H Calcium 9.3 POC Glucose 221 H EKG Initial EKG: Attestation: I personally reviewed and interpreted this EKG as follows: Comments: Sinus rhythm rate of 93, no ST or T wave changes. QTc 442. Discharge Plan Triage Chief Complaint: Syncope ED Provider: Lex Hickey Dx/Rx/DC Orders Clinical Impression: Syncope, History of diabetes mellitus, Hyponatremia Instructions: Hyponatremia Dc, Understanding Vasovagal Syncope Prescriptions: No Action testosterone cypionate 200 mg/mL kit 100 mg IM Q2W RF: 0 atorvastatin 10 MG tablet 10 mg PO QHS RF: 0 glimepiride 2 MG tablet 2 mg PO DAILY RF: 0 metformin 1,000 MG tablet 1,000 mg PO BIDCM RF: 0 lisinopril 5 MG tablet 5 mg PO DAILY RF: 0 sitagliptin 50 MG tablet 50 mg PO DAILY RF: 0 citalopram 20 MG tablet 20 mg PO DAILY RF: 0 Primary Care Provider: Isra Hernandez Referrals: Isra Hernandez MD [Primary Care Provider] - 3-5 Days Activity Restrictions/Additional Instructions: EKG normal. Sodium 133. Glucose 220. Continue oral fluids at home. Monitoring symptoms. Return if any worsening symptoms. Follow-up with your PCP. Disposition Disposition: Home, Self Care
[2020-10-26 02:39] LABS: Absolute Neutrophil Count 5.2 X10^3/uL (2.0-7.7); Basophil% 0.9 % (0-1); Eosinophil# 0.65 X10^3/uL; Eosinophils% 5.8 % (0-5); Hematocrit 42.7 % (40-54); Lymphocyte % 39.1 % (19-41); Mean Corp Hgb Conc 35.1 g/dL (32-36); Mean Corpuscular Hgb 30.7 pg (27.0-32.0); Mean Corpuscular Volume 87.5 fL (80-94); Mean Platelet Vol. 9.4 fl (6.2-12.0); Monocyte# 0.84 X10^3/uL; Monocyte% 7.5 % (0-10); NRBC Flagged by Analyzer 0 % (0-5); Neutrophil % 46.3 % (47-70); Platelet Count 283 K/mm3 (150-450); RBC Distribution Width CV 12.7 % (11.6-14.6); RBC Distribution Width SD 40.2 fl (35.1-43.9); Red Blood Count 4.88 M/mm3 (4.6-6.2); White Blood Count 11.2 K/mm3 (4.4-11.0)
[2020-10-26] MEDS: 0.9% Normal Saline 1,000 ML 1000 ML IV (02:52)
[2020-10-26 03:01] LABS: Bedside Glucose 221 mg/dL (70-110)
[2020-10-26 03:08] LABS: Anion Gap 7 (5-15); BUN 10 mg/dL (7-18); BUN/Creat Ratio 8.8 RATIO (10-20); Calcium,Total 9.3 mg/dL (8.5-10.1); Chloride 100 mmol/L (98-107); Creatinine, Serum 1.14 mg/dL (0.70-1.30); EST Glomerular Filtration Rate 81 mL/min (>60); Est Glom Filt Rate - Afr Amer 99 mL/min (>60); Estimated Creatinine Clearance 106.83 ml/min; Glucose 220 mg/dL (74-106); Potassium 5.2 mmol/L (3.5-5.1); Sodium Level 133 mmol/L (136-145)
--- NOTE | 2020-10-26 04:03 | NURSING ---
pt ambulated with this nurse. pt reported feeling no s/s of dizziness. pt feels ok to be d/c
== END 2020-10-26 04:03 | disposition home or self-care (01) ==
PROVIDERS: Emergency Provider Emergency Medicine; PCP Family Medicine
DX: R55 Syncope and collapse (principal); E11.9 Type 2 diabetes mellitus without complications; E87.1 Hypo-osmolality and hyponatremia; I10 Essential (primary) hypertension; E66.9 Obesity, unspecified; Z68.34 Body mass index [BMI] 34.0-34.9, adult; E78.5 Hyperlipidemia, unspecified; F32.9 Major depressive disorder, single episode, unspecified; F41.9 Anxiety disorder, unspecified; I47.1 Supraventricular tachycardia; Z79.84 Long term (current) use of oral hypoglycemic drugs; Z79.899 Other long term (current) drug therapy
CPT/HCPCS: 80048; 82962; 85025; 93005; 96360; 99282; J7030; A4216

== ENCOUNTER → 2020-11-20 16:56 | Outpatient (CLI) | payer MEDICAID, SELFPAY ==
[2020-10-26 02:17] VITALS: BMI 34.0
--- NOTE | 2020-11-20 16:57 | MRI_ITS ---
STUDY: MRI LOWER EXTREMITY LEFT TIBIA/FIBULA WITH AND WITHOUT CONTRAST REASON FOR EXAM: Palpable abnormality of left lower leg for 6 months. TECHNIQUE: Standardized fat and water weighted pulse sequences were obtained in all 3 orthogonal planes, post contrast administration. 22 ml IV Dotarem was administered for the contrast portion of the examination. COMPARISON: Radiographs 10/12/2020. FINDINGS: There is no bone edema or stress fracture of the visualized left tibia and fibula. The small osteochondroma of the medial aspect of the proximal tibial metaphysis is not well demonstrated on the MRI study, the axial images do not include the proximal tibia in the [id number]. Normal anterior, lateral, and posterior calf compartments, with normal muscles, crural fascia and intermuscular septa. There is edema in the subcutis adipose space at the anterior, anterior medial and lateral subcutis adipose space between the skin markers (inversion recovery axial images 1-38; inversion recovery sagittal images 9-23) without discrete soft tissue mass or fluid collection. There is contrast enhancement of the edema in the subcutis adipose space (postcontrast T1 axial images 7-31). MRI/Lower Ext No Joint W/WO Cont IMPRESSION: Edema in the subcutis adipose space with contrast enhancement between the skin markers without discrete soft tissue mass. Electronically Signed: Sree Klein MD at 11:42 EDT Tel , Service support ,
[2020-11-20 17:36] LABS: CREATININE FINGERSTICK 0.8 mg/dL (0.70-1.30); EGFR FINGERSTICK > 60.0000 mL/min (>60)
== END ==
PROVIDERS: PCP Family Medicine; Referring Provider Orthopaedic Surgery; Visit Provider Orthopaedic Surgery
DX: R22.42 Localized swelling, mass and lump, left lower limb (principal)
CPT/HCPCS: 73720; A9575

== ENCOUNTER → 2020-12-15 16:01 | Outpatient (CLI) | payer MEDICAID, SELFPAY ==
[2020-12-15 17:58] LABS: Anion Gap 8 (5-15); BUN 14 mg/dL (7-18); BUN/Creat Ratio 17.7 RATIO (10-20); Chloride 109 mmol/L (98-107); Cholesterol 171 mg/dL (200); Creatinine, Serum 0.79 mg/dL (0.70-1.30); EST Glomerular Filtration Rate 124 mL/min (>60); Est Glom Filt Rate - Afr Amer 150 mL/min (>60); Glucose 128 mg/dL (74-106); High Density Lipoprotein 17 mg/dL; Potassium 4.1 mmol/L (3.5-5.1); Sodium Level 137 mmol/L (136-145); Triglycerides 579 mg/dL
== END ==
PROVIDERS: PCP Family Medicine; Referring Provider Family Medicine; Visit Provider Family Medicine
DX: E34.9 Endocrine disorder, unspecified (principal); E11.9 Type 2 diabetes mellitus without complications
CPT/HCPCS: 36415; 80048; 80061; 84403

== ENCOUNTER → 2021-01-26 11:47 | Outpatient (CLI) | payer MEDICAID, SELFPAY ==
--- NOTE | 2021-01-26 11:49 | RAD_ITS ---
INDICATION: ACUTE BRONCHITIS EXAMINATION/TECHNIQUE: X-RAY - XR Chest 2 Views COMPARISON: None. FINDINGS: The lungs are clear. The cardiomediastinal silhouette is unremarkable. No pleural effusion or pneumothorax. No acute osseous abnormalities. RAD/Chest PA and Lateral IMPRESSION: No acute radiographic abnormalities. Electronically Signed: Zenon Layton MD at 23:08 EDT Tel , Service support ,
== END ==
PROVIDERS: PCP Family Medicine; Referring Provider Family Medicine; Visit Provider Family Medicine
DX: J20.9 Acute bronchitis, unspecified (principal)
CPT/HCPCS: 71046

== ENCOUNTER → 2021-04-11 08:18 | Outpatient (CLI) | payer MEDICAID, SELFPAY ==
[2021-04-11 10:39] LABS: Anion Gap 9 (5-15); BUN 15 mg/dL (7-18); BUN/Creat Ratio 14.2 RATIO (10-20); Calcium,Total 9.2 mg/dL (8.5-10.1); Chloride 105 mmol/L (98-107); Cholesterol 160 mg/dL (200); Creatinine, Serum 1.06 mg/dL (0.70-1.30); EST Glomerular Filtration Rate 88 mL/min (>60); Est Glom Filt Rate - Afr Amer 107 mL/min (>60); Glucose 139 mg/dL (74-106); High Density Lipoprotein 13 mg/dL; Potassium 4.2 mmol/L (3.5-5.1); Sodium Level 137 mmol/L (136-145); Triglycerides 787 mg/dL
== END ==
PROVIDERS: PCP Family Medicine; Referring Provider Family Medicine; Visit Provider Family Medicine
DX: E34.9 Endocrine disorder, unspecified (principal); F33.1 Major depressive disorder, recurrent, moderate; E11.9 Type 2 diabetes mellitus without complications
CPT/HCPCS: 36415; 80048; 80061; 84403; 84443

== ENCOUNTER → 2021-04-25 15:34 | Outpatient (CLI) | payer MEDICAID, SELFPAY | PROVIDERS: PCP Family Medicine; Referring Provider Family Medicine; Visit Provider Family Medicine | DX: E34.9 Endocrine disorder, unspecified (principal) | CPT/HCPCS: 36415; 84403 ==

== ENCOUNTER 2021-05-17 12:01 | Outpatient (CLI) | payer MEDICAID, SELFPAY ==
[2021-05-17 15:21] LABS: Absolute Lymphocyte Count 2.66 X10^3/uL (0.83-4.51); Absolute Neutrophil Count 4.7 X10^3/uL (2.0-7.7); Basophil# 0.07 X10^3/uL; Basophil% 0.8 % (0-1); Eosinophil# 0.45 X10^3/uL; Eosinophils% 5.1 % (0-5); Hematocrit 45.3 % (40-54); Hemoglobin 15.7 g/dL (13.0-16.5); Lymphocyte # 2.66 X10^3/ul (0.83-4.51); Lymphocyte % 30.4 % (19-41); Mean Corp Hgb Conc 34.7 g/dL (32-36); Mean Corpuscular Hgb 29.2 pg (27.0-32.0); Mean Corpuscular Volume 84.2 fL (80-94); Mean Platelet Vol. 10.2 fl (6.2-12.0); Monocyte# 0.83 X10^3/uL; Monocyte% 9.5 % (0-10); NRBC Flagged by Analyzer 0 % (0-5); Neutrophil # 4.72 X10^3/uL (2.7-7.7); Platelet Count 284 K/mm3 (150-450); RBC Distribution Width CV 12.1 % (11.6-14.6); RBC Distribution Width SD 36.7 fl (35.1-43.9); Red Blood Count 5.38 M/mm3 (4.6-6.2); White Blood Count 8.8 K/mm3 (4.4-11.0)
[2021-05-17 15:58] LABS: AST(SGOT) 17 U/L (15-37); Alanine Aminotransfer ALT/SGPT 22 U/L (16-61); Albumin, Serum 4.5 g/dL (3.2-5.0); Alkaline Phosphatase 48 U/L (45-117); Anion Gap 8 (5-15); BUN 16 mg/dL (7-18); BUN/Creat Ratio 14.4 RATIO (10-20); Calcium,Total 9.6 mg/dL (8.5-10.1); Chloride 101 mmol/L (98-107); Creatinine, Serum 1.11 mg/dL (0.70-1.30); EST Glomerular Filtration Rate 84 mL/min (>60); Est Glom Filt Rate - Afr Amer 101 mL/min (>60); Globulin 4.7 g/dL (2.2-4.2); Glucose 102 mg/dL (74-106); Magnesium 1.8 mg/dL (1.6-2.6); Potassium 3.8 mmol/L (3.5-5.1); Protein, Total 9.2 g/dL (6.4-8.2); Sodium Level 134 mmol/L (136-145)
== END 2021-05-17 23:59 | disposition short-term general hospital (02) ==
LOC: MTLAB 12:03
PROVIDERS: PCP Family Medicine; Referring Provider Family Medicine; Visit Provider Family Medicine
DX: K52.9 Noninfective gastroenteritis and colitis, unspecified (principal); R19.7 Diarrhea, unspecified
CPT/HCPCS: 36415; 80053; 83735; 85025

== ENCOUNTER 2021-07-13 09:19 | Outpatient (CLI) | payer MEDICAID, SELFPAY ==
[2021-07-13 10:45] LABS: Cholesterol 158 mg/dL (200); High Density Lipoprotein 16 mg/dL; Triglycerides 695 mg/dL
== END 2021-07-13 23:59 | disposition home or self-care (01) ==
PROVIDERS: PCP Family Medicine; Referring Provider Family Medicine; Visit Provider Family Medicine
DX: E29.1 Testicular hypofunction (principal); E34.9 Endocrine disorder, unspecified; E78.5 Hyperlipidemia, unspecified
CPT/HCPCS: 36415; 80061; 84403

== ENCOUNTER 2022-06-21 09:11 | Emergency (ER) | payer MEDICAID, SELFPAY ==
[2022-06-21 09:12] VITALS: BP 112/81; PULSE 165; RESP 16; TEMP 35.8; O2SAT 96; BMI 29.8
--- NOTE | 2022-06-21 09:25 | EKG12_ITS ---
Test Reason : HIGH HR Blood Pressure : / mmHG Vent. Rate : 154 BPM Atrial Rate : 000 BPM P-R Int : 000 ms QRS Dur : 098 ms QT Int : 300 ms P-R-T Axes : 000 026 043 degrees QTc Int : 480 ms Supraventricular tachycardia Nonspecific ST abnormality Abnormal ECG Confirmed by KARINE CANADA, ELENA ([id number]), features editor LORI CHRISTINA ([id number]) on 06/24/2022 1:45:51 PM Referred By: PEPE Confirmed By:ELENA MILTON MD
--- NOTE | 2022-06-21 09:26 | EDS_ITS ---
HPI History of Present Illness Chief Complaint: Palpitations Narrative Narrative: 31-year-old male presenting with palpitations. He is got a history of SVT. He states he is not controlled medicine. He believes his horseback riding instructor Dr. Guillermo. 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 He states that his symptoms started about an hour ago but the school would not let him leave until another substitute came to take his place. He does not have chest pain. He is a little dyspneic with his heart rate. He feels a little lightheaded. He has been otherwise well. History of hypertension, hyperlipidemia, diabetes. [facility] Medical History Anxiety and depression Erectile dysfunction Essential (primary) hypertension Hyperlipidemia Obesity Supraventricular tachycardia (03/20/18) Type 2 diabetes mellitus Home Medications atorvastatin 10 mg tablet 10 mg PO QHS 02/19/18 [History Last Taken Unknown] glimepiride 2 mg tablet 2 mg PO DAILY 02/19/18 [History Last Taken Unknown] lisinopril 5 mg tablet 5 mg PO DAILY 02/19/18 [History Last Taken 02/26/18 05:20] testosterone cypionate 200 mg/mL intramuscular kit 100 mg IM Q2W 03/31/18 [History Last Taken Unknown] metoprolol tartrate 25 mg tablet 25 mg PO DAILY #60 tabs 06/21/22 [Rx Last Taken Unknown] sertraline 50 mg tablet 50 mg PO DAILY 06/21/22 [History Last Taken Unknown] Allergy/AdvReac Type Severity Reaction Status Date / Time No Known Allergies Allergy Verified 11/30/20 11:48 Surgical History H/O adenoidectomy History of nasal septoplasty (02/2018) History of skin surgery Social History Smoking Status: Never smoker alcohol intake: never caffeine: Yes (2-3 daily) ROS ROS ED Constitutional Constitutional ED: Denies chills, fever(s) or sweats Eyes Eyes: Denies blurry vision or change in vision ENT ENT ED: Denies ear pain or sore throat Cardiovascular Cardiovascular: Reports palpitations and racing heartbeat; Denies chest pain Respiratory/Chest Respiratory/Chest: Reports dyspnea; Denies cough or sputum Gastrointestinal Gastrointestinal: Denies abdominal pain, constipation, diarrhea, nausea or vomiting Genitourinary Genitourinary ED: Denies dysuria, hematuria or urinary frequency Musculoskeletal Musculoskeletal: Denies arthralgias, myalgias or neck pain Integumentary Denies abscess, Abrasions or rash Neurologic Neurologic: Denies headache(s), paresthesias or weakness Psychiatric Psychiatric: Denies anxiety, depression, suicidal ideation or suicidal thoughts Endocrine Endocrinology: Denies polydipsia or polyuria EXAM Physical Exam Const Vital Signs: 06/21/22 09:12 06/21/22 09:50 06/21/22 09:51 Temperature 96.5 F L Temperature Source Temporal Pulse Rate 165 H Respiratory Rate 16 Respiratory Pattern Normal Blood Pressure 112/81 H Blood Pressure Mean 91 Pulse Ox 96 Oxygen Delivery Method Room Air Room Air Positive well nourished General Appearance ED: Negative for pallor HEENT Reports moist mucous membranes Eyes PERRL and EOMs intact bilaterally Neck no lymphadenopathy Chest Wall inspection of chest normal and palpation of chest normal Resp normal respiratory effort and clear to auscultation bilaterally Auscultation: Negative for rales, rhonchi or wheezes Cardio regular rhythm Rate: tachycardic GI normal to inspection, nondistended, normoactive bowel sounds Back/Spine no CVA tenderness Neuro oriented x3 and CN's II-XII intact bilaterally Psych mental status grossly normal Skin no rashes or lesions noted and no wounds General Skin Exam: Negative for jaundice or pallor MDM MDM MDM Narrative Medical decision making narrative: 31-year-old male presenting with palpitations. He has a history of SVT. He states that he has been having these palpitations for about an hour and the school would not let him leave because he did not have a substitute to take his place. Patient noted to have a heart rate of 165. Patient seen and evaluated immediately. He was in SVT. His EKG showed SVT at a rate of 154 bpm. Vagal maneuvers were successful. Patient converted without any medication. Heart rate on follow-up EKG is now 97 bpm without sign of ischemic changes arrhythmia. Most likely diagnosis is SVT which is converted, however differential includes but is not limited to ACS, PE, pneumonia, pneumothorax, muscle strain, costochondritis will obtain CBC for white blood cell count, hemoglobin, differential. BMP for renal function electrolytes, glucose. CBC shows no leukocytosis. Hemoglobin hematocrit are stable. Platelets are normal. Renal function and electrolytes within normal limits. Glucose slightly elevated 196 without an anion gap. High-sensitivity troponin is 18. Patient has not had a return of his tachycardia. Chest x-ray on my interpretation shows no acute process. Radiology interpretation agrees. Discussed with Dr. Don who recommended putting the patient on metoprolol 25 mg p.o. twice daily. Patient was given first dose in the ED. He is given return precautions. He is to follow-up with cardiology. Impression: 1. SVT 2. Palpitations Lab Data Attestation: I reviewed the patient's lab results. Labs: Laboratory Results - last 24 hr 06/21/22 06/21/22 06/21/22 09:30 09:30 09:30 WBC 7.2 RBC 4.66 Hgb 14.3 Hct 40.3 MCV 86.5 MCH 30.7 MCHC 35.5 RDW Std Deviation 39.7 RDW Coeff of Pilar 12.7 Plt Count 309 MPV 9.4 Immature Gran % (Auto) 0.100 Neut % (Auto) 31.1 L Lymph % (Auto) 50.7 H [place] % (Auto) 9.1 Eos % (Auto) 7.6 H Baso % (Auto) 1.4 H Absolute Neuts (auto) 2.3 Absolute Lymphs (auto) 3.67 Nucleated RBC % 0 D-Dimer Quant (PE/DVT) 0.37 Sodium 136 Potassium 4.9 Chloride 103 Carbon Dioxide 24.0 Anion Gap 9 BUN 19 H Creatinine 1.17 Estim Creat Clear Calc 102.25 Est GFR (MDRD) Af Amer 95 Est GFR (MDRD) Non-Af 78 BUN/Creatinine Ratio 16.2 Glucose 196 H Calcium 9.4 Troponin I High Sens 18 Radiography Diagnostic Testing: Clinical Impression(s) from Imaging Studies Chest X-Ray 06/21/22 09:35 IMPRESSION: Normal x-ray examination of the chest. Electronically Signed: Emmett Manjarrez MD at 9:51 EST , Discharge Plan Triage Chief Complaint: Palpitations ED Provider: Bubba Campbell Dx/Rx/DC Orders Instructions: ED Understanding Supraventricular Tachycardia (SVT) Prescriptions: New metoprolol tartrate 25 mg tablet 25 mg PO DAILY Qty: 60 0RF No Action testosterone cypionate 200 mg/mL kit 100 mg IM Q2W atorvastatin 10 MG tablet 10 mg PO QHS glimepiride 2 MG tablet 2 mg PO DAILY lisinopril 5 MG tablet 5 mg PO DAILY sertraline 50 mg tablet 50 mg PO DAILY Label Comments: TAKE 1 TABLET BY MOUTH ONCE DAILY Primary Care Provider: Isra Hernandez Referrals: Pacheco Guillermo MD [Med Staff - Active Staff] - As soon as possible Isra Hernandez MD [Primary Care Provider] - Disposition Disposition: Home, Self Care
--- NOTE | 2022-06-21 09:30 | EKG12_ITS ---
Test Reason : REPEAT Blood Pressure : / mmHG Vent. Rate : 097 BPM Atrial Rate : 097 BPM P-R Int : 202 ms QRS Dur : 104 ms QT Int : 350 ms P-R-T Axes : 051 025 046 degrees QTc Int : 444 ms Normal sinus rhythm Normal ECG Confirmed by ELENA MILTON MD ([id number]), news assignment editor LORI CHRISTINA ([id number]) on 06/24/2022 1:46:26 PM Referred By: PEPE Confirmed By:ELENA MILTON MD
[2022-06-21] MEDS: 0.9% Normal Saline 1,000 ML 999 ML IV (09:32)
--- NOTE | 2022-06-21 09:35 | RAD_ITS ---
STUDY: X-RAY CHEST REASON FOR EXAM: Male, 31 years old. Chest pain TECHNIQUE: Single AP portable view of the chest. COMPARISON: Comparison is made with prior study dated 01/26/2021. FINDINGS: EKG electrodes are seen. The lungs are clear and expanded. There is no demonstrated pleural abnormality. Normal size heart. Normal mediastinum and chloé. Normal visualized pulmonary arteries. Normal visualized aortic arch and descending thoracic aorta. Normal visualized thoracic spine. Normal visualized ribs, clavicles, and shoulders. There is no demonstrated abnormality of the visualized soft tissue structures of the upper abdomen. RAD/Chest 1 View (Portable) IMPRESSION: Normal x-ray examination of the chest. Electronically Signed: Emmett Manjarrez MD at 9:51 EST ,
[2022-06-21 09:42] LABS: Absolute Lymphocyte Count 3.67 X10^3/uL (0.83-4.51); Absolute Neutrophil Count 2.3 X10^3/uL (2.0-7.7); Basophil% 1.4 % (0-1); Eosinophil# 0.55 X10^3/uL; Eosinophils% 7.6 % (0-5); Hematocrit 40.3 % (40-54); Hemoglobin 14.3 g/dL (13.0-16.5); Lymphocyte # 3.67 X10^3/ul (0.83-4.51); Lymphocyte % 50.7 % (19-41); Mean Corp Hgb Conc 35.5 g/dL (32-36); Mean Corpuscular Hgb 30.7 pg (27.0-32.0); Mean Corpuscular Volume 86.5 fL (80-94); Mean Platelet Vol. 9.4 fl (6.2-12.0); Monocyte# 0.66 X10^3/uL; Monocyte% 9.1 % (0-10); NRBC Flagged by Analyzer 0 % (0-5); Neutrophil # 2.25 X10^3/uL (2.7-7.7); Neutrophil % 31.1 % (47-70); Platelet Count 309 K/mm3 (150-450); RBC Distribution Width CV 12.7 % (11.6-14.6); RBC Distribution Width SD 39.7 fl (35.1-43.9); Red Blood Count 4.66 M/mm3 (4.6-6.2); White Blood Count 7.2 K/mm3 (4.4-11.0)
[2022-06-21 10:00] LABS: Anion Gap 9 (5-15); BUN 19 mg/dL (7-18); BUN/Creat Ratio 16.2 RATIO (10-20); Calcium,Total 9.4 mg/dL (8.5-10.1); Chloride 103 mmol/L (98-107); Creatinine, Serum 1.17 mg/dL (0.70-1.30); EST Glomerular Filtration Rate 78 mL/min (>60); Est Glom Filt Rate - Afr Amer 95 mL/min (>60); Estimated Creatinine Clearance 102.25 ml/min; Glucose 196 mg/dL (74-106); Potassium 4.9 mmol/L (3.5-5.1); Sodium Level 136 mmol/L (136-145); Troponin-I HS (w/2H Reflex) 18 pg/mL (3.0-78.0)
[2022-06-21 10:02] LABS: D-Dimer Quantitative (DVT/PE) 0.37 FEU/ug/m (0.27-0.49)
[2022-06-21] MEDS: Metoprolol Tartrate 25 MG Tablet PO (10:28)
[2022-06-21 10:29] VITALS: BP 145/74; PULSE 74; RESP 15; O2SAT 99
[2022-06-21 11:37] LABS: Reflex Troponin-HS? (from REC) Y
== END 2022-06-21 10:32 | disposition home or self-care (01) ==
PROVIDERS: Emergency Provider Student in an Organized Health Care Education/Training Program; PCP Family Medicine; Visit Provider Student in an Organized Health Care Education/Training Program
DX: I47.1 Supraventricular tachycardia (principal); E11.65 Type 2 diabetes mellitus with hyperglycemia; E78.5 Hyperlipidemia, unspecified; I10 Essential (primary) hypertension
CPT/HCPCS: 71045; 80048; 84484; 85025; 85379; 93005; 99285; J7030

== ENCOUNTER → 2023-01-27 | Outpatient (CLI) | payer MEDICAID, SELFPAY ==
[2023-01-27 17:48] LABS: Absolute Neutrophil Count 2.6 X10^3/uL (2.0-7.7); Basophil# 0.05 X10^3/uL; Basophil% 0.9 % (0-1); Eosinophil# 0.36 X10^3/uL; Eosinophils% 6.6 % (0-5); Hematocrit 33.3 % (40-54); Lymphocyte % 36.8 % (19-41); Mean Corpuscular Hgb 30.4 pg (27.0-32.0); Mean Corpuscular Volume 84.3 fL (80-94); Mean Platelet Vol. 10.8 fl (6.2-12.0); Monocyte# 0.39 X10^3/uL; Monocyte% 7.2 % (0-10); NRBC Flagged by Analyzer 0 % (0-5); Neutrophil # 2.63 X10^3/uL (2.7-7.7); Neutrophil % 48.3 % (47-70); Platelet Count 202 K/mm3 (150-450); RBC Distribution Width CV 11.9 % (11.6-14.6); RBC Distribution Width SD 36.1 fl (35.1-43.9); Red Blood Count 3.95 M/mm3 (4.6-6.2); White Blood Count 5.4 K/mm3 (4.4-11.0)
[2023-01-27 18:25] LABS: PSA,Total - Annual Screen < 0.01 ng/mL (0.00-4.00)
[2023-02-02 17:06] LABS: Testosterone, % Free 3.82 % (1.50-4.20); Testosterone, Free < 0.11 ng/dL (5.00-21.00); Testosterone, Total < 3 ng/dL (264-916)
== END | disposition home or self-care (01) ==
LOC: MFPLAB 15:01
PROVIDERS: PCP Family Medicine; Visit Provider Family Medicine
DX: I10 Essential (primary) hypertension (principal); E29.1 Testicular hypofunction; R35.0 Frequency of micturition
CPT/HCPCS: 84153; 36415; 84402; 84403; 85025; G0103

== ENCOUNTER 2024-04-21 22:03 | Emergency (ER) | payer MEDICAID, SELFPAY ==
[2024-04-21 22:03] VITALS: BP 116/74; PULSE 102; RESP 25; TEMP 36.2; O2SAT 100; BMI 27.2
--- NOTE | 2024-04-21 22:41 | EX.ED.DYSGE1 ---
HPI History of Present Illness Chief Complaint: Shortness of Breath Informant: patient Narrative Narrative: 33-year-old male states he has been ill for the past 3 days with cough, congestion, some occasional wheezing, not feeling well. Saw his doctor today and was diagnosed clinically with pneumonia and started on cefdinir he has had 1 dose. States since then, he has been having coughing fits that make it difficult to catch his breath and occasionally make him feel like he is choking. By choking he agrees that it feels like he is gagging due to coughing. He denies any dyspnea other than the mild wheezing when he is not coughing. He denies any nausea, diarrhea, abdominal pain, chest pain, any other new symptoms or concerning symptoms tonight. He does not have a history of asthma. [facility] Medical History (Updated 04/21/24 @ 22:[address] Dipak Catherine MD) Erectile dysfunction Obesity Anxiety and depression Supraventricular tachycardia (03/20/18) Essential (primary) hypertension Hyperlipidemia Type 2 diabetes mellitus Home Medications ?Medication ?Instructions ?Recorded ?Last Taken ?Type atorvastatin 10 mg tablet 10 mg PO QHS 02/19/18 Unknown History glimepiride 2 mg tablet 2 mg PO DAILY 02/19/18 Unknown History lisinopril 5 mg tablet 5 mg PO DAILY 02/19/18 02/26/18 05:20 History testosterone cypionate 200 mg/mL 100 mg IM Q2W 03/31/18 Unknown History intramuscular kit metoprolol tartrate 25 mg tablet 25 mg PO DAILY #60 tabs 06/21/22 Unknown Rx sertraline 50 mg tablet 50 mg PO DAILY 06/21/22 Unknown History Allergy/AdvReac Type Severity Reaction Status Date / Time No Known Allergies Allergy Verified 04/21/24 22:03 Surgical History History of skin surgery H/O adenoidectomy History of nasal septoplasty (02/2018) Social History Smoking Status: Never smoker alcohol intake: never caffeine: Yes (2-3 daily) ROS ROS ED Constitutional Constitutional ED: Denies chills or fever(s) ENT ENT ED: Reports nasal congestion and rhinorrhea; Denies ear pain or sore throat Cardiovascular Cardiovascular: Denies chest pain or palpitations Respiratory/Chest Respiratory/Chest: Reports cough; Denies dyspnea on exertion Gastrointestinal Gastrointestinal: Reports vomiting; Denies abdominal pain, diarrhea or nausea Genitourinary Genitourinary ED: Denies dysuria or hematuria Musculoskeletal Musculoskeletal: Denies myalgias or neck pain Integumentary Denies abscess or rash Neurologic Neurologic: Denies headache(s), paresthesias or weakness Psychiatric Psychiatric: Denies depression or suicidal thoughts Endocrine Endocrinology: Denies polydipsia or polyuria EXAM Physical Exam Const Vital Signs: 04/21/24 22:03 Temperature 97.2 F L Temperature Source Temporal Pulse Rate 102 H Respiratory Rate 25 H Blood Pressure 116/74 Blood Pressure Mean 88 Pulse Ox 100 Oxygen Delivery Method Room Air Positive well nourished and well developed General Appearance ED: well developed and NAD HEENT Reports moist mucous membranes normocephalic and atraumatic Throat: Negative for posterior oropharynx abnormal Eyes PERRL and EOMs intact bilaterally Neck no lymphadenopathy, supple and no meningeal signs Resp normal respiratory effort and clear to auscultation bilaterally Resp Narrative: Occasional cough no bronchospasm on exam. Conversive in full sentences. Cardio no murmurs Rate: regular rate Rhythm: regular rhythm GI normal to inspection, nondistended, normoactive bowel sounds and non-tender Neuro oriented x3, CN's II-XII intact bilaterally and no sensory deficits noted Sensorium / Orientation: alert Motor Exam: strength 5/5 throughout Skin Lesions: no lesions Rashes: no rashes MDM MDM MDM Narrative Medical decision making narrative: Patient has oxygen saturations of 100 on room air, his lungs are clear, and he is describing bronchospasm. He is reassured and given an albuterol treatment as well as an inhaler to use as needed. He has benzonatate to take in addition to the cefdinir advised to continue these and follow-up or return if worse. Discharge Plan Triage Chief Complaint: Shortness of Breath ED Provider: Dipak Catherine Dx/Rx/DC Orders Clinical Impression: Bronchospasm Instructions: ED Bronchospasm (Adult) Prescriptions: No Action testosterone cypionate 200 mg/mL kit 100 mg IM Q2W atorvastatin 10 MG tablet 10 mg PO QHS glimepiride 2 MG tablet 2 mg PO DAILY lisinopril 5 MG tablet 5 mg PO DAILY sertraline 50 mg tablet 50 mg PO DAILY Patient Comments: TAKE 1 TABLET BY MOUTH ONCE DAILY metoprolol tartrate 25 mg tablet 25 mg PO DAILY Qty: 60 0RF Primary Care Provider: Isra Hernandez Referrals: Isra Hernandez MD [Primary Care Provider] - Activity Restrictions/Additional Instructions: Albuterol inhaler as needed for either wheezing or coughing fits: 2 puffs inhaled every 2-4 hours as needed Print Language: Palestinian Disposition Disposition: Home, Self Care
[2024-04-21 23:19] VITALS: PULSE 86; RESP 18
[2024-04-21] MEDS: Albuterol 2.5 MG/3 ML VIAL.NEB. INHALATION (23:19)
[2024-04-21 23:23] VITALS: O2SAT 100
[2024-04-21] MEDS: Albuterol Sulfate 8 gm Inhaler (60 puffs) 2 PUFF INHALATION (23:33)
[2024-04-21 23:36] VITALS: PULSE 83; RESP 18; O2SAT 92
== END 2024-04-21 23:37 | disposition home or self-care (01) ==
LOC: ED 22:48
PROVIDERS: Emergency Provider Emergency Medicine; PCP Family Medicine; Visit Provider Emergency Medicine
DX: R06.02 Shortness of breath (principal); E11.9 Type 2 diabetes mellitus without complications; E78.5 Hyperlipidemia, unspecified; I10 Essential (primary) hypertension; J98.01 Acute bronchospasm; Z79.899 Other long term (current) drug therapy; Z79.84 Long term (current) use of oral hypoglycemic drugs; F41.8 Other specified anxiety disorders
CPT/HCPCS: 94640; 99282